=== PATIENT | male | born 1945 | race Caucasian/White ===

== ENCOUNTER 2020-10-22 13:18 | Observation (INO) | payer MEDICARE ==
[~2020-10-22] VITALS: Ht 177.8 cm; Wt 109.5 kg
[2020-10-22] MEDS ORDERED: ALBU2.5V4 NEB (13:54)
[2020-10-22] MEDS ORDERED: CLON0.5T4 PO (13:54)
[2020-10-22] MEDS ORDERED: WARF-48 PO (13:54)
[2020-10-22] MEDS ORDERED: CARV25TA PO (13:54)
[2020-10-22] MEDS ORDERED: DIGO250T3 PO (13:54)
[2020-10-22] MEDS ORDERED: PANT40TA52 PO (13:54)
[2020-10-22] MEDS ORDERED: CITA20TA9 PO (13:54)
[2020-10-22] MEDS ORDERED: METF750T45 PO (13:54)
[2020-10-22] MEDS ORDERED: FURO40TA4 PO (13:54)
[2020-10-22] MEDS ORDERED: LOSA50TA63 PO (13:54)
[2020-10-22] MEDS ORDERED: PRAV20TA3 PO (13:54)
[2020-10-22] MEDS ORDERED: UMEC62.5 INH (13:54)
[2020-10-22] MEDS ORDERED: POTA20TA15 PO (13:54)
[2020-10-22] MEDS ORDERED: RT-ALBUTEROL INHALER HFA (VENTOLIN HFA) 18 GM IH ONE (14:04)
--- NOTE | 2020-10-22 14:06 | NUR ---
PT OXYGEN WAS OFF ET PULSE OX 93% ROOM AIR. PT STATES HE IS BETTER AND DOES NOT NEED IT PUT BACK ON.
[2020-10-22 14:10] LABS: ALBUMIN 4.6 GM/DL (3.2-4.5); CHLORIDE 100 MMOL/L (98-107); POTASSIUM 4.2 MMOL/L (3.6-5.0); SODIUM 139 MMOL/L (135-145)
[2020-10-22 14:11] LABS: BASOPHILS # (AUTO) 0.1 10^3/uL (0.0-0.1); BASOPHILS % (AUTO) 1 % (0-10); CALCIUM 9.9 MG/DL (8.5-10.1); EOSINOPHILS # (AUTO) 0.6 10^3/uL (0.0-0.3); EOSINOPHILS % (AUTO) 6 % (0-10); HEMATOCRIT 48 % (40-54); HEMOGLOBIN 16.2 g/dL (13.3-17.7); LYMPHOCYTES % (AUTO) 20 % (12-44); MEAN CORPUSCULAR HEMOGLOBIN 32 pg (25-34); MEAN CORPUSCULAR HGB CONC 34 g/dL (32-36); MEAN CORPUSCULAR VOLUME 93 fL (80-99); MEAN PLATELET VOLUME 10.3 fL (9.0-12.2); MONOCYTES % (AUTO) 10 % (0-12); NEUTROPHILS # (AUTO) 6.4 10^3/uL (1.8-7.8); NEUTROPHILS % (AUTO) 63 % (42-75); PLATELET COUNT 260 10^3/uL (130-400); WHITE BLOOD COUNT 10.1 10^3/uL (4.3-11.0)
[2020-10-22 14:12] LABS: GLUCOSE 105 MG/DL (70-105); TOTAL PROTEIN 7.6 GM/DL (6.4-8.2)
[2020-10-22 14:13] LABS: CARBON DIOXIDE 25 MMOL/L (21-32)
[2020-10-22 14:14] LABS: BILIRUBIN,TOTAL 0.5 MG/DL (0.1-1.0)
[2020-10-22] MEDS ORDERED: methylPREDNISolone 125 MG (Solu-MEDROL) VIAL IVP ONE (14:15)
[2020-10-22 14:16] LABS: ALKALINE PHOSPHATASE 52 U/L (40-136); CREATININE SERUM 1.26 MG/DL (0.60-1.30); GFR ESTIMATED 56
[2020-10-22 14:17] LABS: BUN/CREATININE RATIO 15
[2020-10-22 14:19] LABS: ALANINE AMINOTRANSFERASE 30 U/L (0-55)
[2020-10-22] MEDS: RT-ALBUTEROL INHALER HFA (VENTOLIN HFA) 18 GM IH SCH ×3 (14:19→19:47)
--- NOTE | 2020-10-22 14:20 | ED Respiratory ---
General Chief Complaint: Respiratory Problems Stated Complaint: COUGH,SOB Nursing Triage Note: ARRIVED VIA AMB TO ROOM 10 IN RESP DISTRESS. STATES HE HAS VOICE BOX PROBLEMS AND HAS THIS FROM TIME TO TIME. STATES IT STARTED ABOUT A WEEK AGO. HAD A NEG COVID TEST LAST FRIDAY. ALSO COMPLAINS OF A COUGH. Source: patient Exam Limitations: no limitations (LEVON FREEDMAN MD) History of Present Illness Date Seen by Provider: Oct 22, 2020 Time Seen by Provider: 13:55 Initial Comments This 74-year-old gentleman presents to the emergency room with cough and shortness of breath. He arrives by private vehicle. Nursing staff reports he was exhausted and in significant distress after walking to the room. He has a pulse oximeter at home and reports oxygen levels as low as 86. He denies history of COPD and family reports he had been tested for COPD with negative results. However, he has diffuse wheezing with poor air movement indicative of COPD. He denies recent fever. He denies any COVID-19 exposures. She reports having episodes similar to this about once per winter. He denies chest pain. He initially reported he had not been using his nebulizer machine since he was admitted last year. He later clarified he had not used it until the last few days when he started using it about every 3 hours. He continues to have shortness of breath despite that. He reports prior problems with vocal cord dysfunction, but that does not appear to be his problem today. (LEVON FREEDMAN MD) Allergies and Home Medications Allergies Coded Allergies: No Known Drug Allergies (Unverified , 10/22/20) Home Medications Albuterol Sulfate 2.5 Mg/3 Ml Vial.neb, 3 ML NEB Q4 -6H PRN for SHORTNESS OF BREATH, (Reported) Calcium Carbonate 600 Mg Tablet, 600 MG PO DAILY, (Reported) Carvedilol 25 Mg Tablet, 25 MG PO BID, (Reported) Citalopram Hydrobromide 20 Mg Tablet, 10 MG PO BID, (Reported) TAKES OF A 20MG TAB Clonazepam 0.5 Mg Tablet, 0.25 MG PO 1800, (Reported) Clonazepam 0.5 Mg Tablet, 0.5 MG PO HS, (Reported) Digoxin 250 Mcg Tablet, 250 MCG PO HS, (Reported) Furosemide 40 Mg Tablet, 40 MG PO DAILY, (Reported) Gabapentin 300 Mg Capsule, 300 MG PO TID, (Reported) Losartan Potassium 50 Mg Tablet, 50 MG PO DAILY, (Reported) Metformin HCl 750 Mg Tab.er.24h, 750 MG PO BID, (Reported) [place]-3/Dha/Epa/Fish Oil 1 Each Capsule, 1 EACH PO DAILY, (Reported) Pantoprazole Sodium 40 Mg Tablet.dr, 40 MG PO DAILY, (Reported) Potassium Chloride 20 Meq Tab.er.prt, 20 MEQ PO DAILY, (Reported) Pravastatin Sodium 20 Mg Tablet, 20 MG PO HS, (Reported) Umeclidinium [place] 62.5 Mcg Blst.w.dev, 1 PUFF INH DAILY, (Reported) Vitamin B Complex 1 Each Capsule, 1 EACH PO DAILY, (Reported) Warfarin Sodium 5 Mg Tablet, 7.5 MG PO SUN,FRI,FRI, (Reported) TAKES 1 & (5MG) TABS ON SUN,FRI &FRI TAKES 1 TAB (5MG) ON TUES,THUS & FRI TAKES (5MG) TAB ON SAT Warfarin Sodium 5 Mg Tablet, 5 MG PO TU,FRI,FRI, (Reported) TAKES 1 & (5MG) TABS ON SUN,MON &WED TAKES 1 TAB (5MG) ON TUES,THUS & FRI TAKES (5MG) TAB ON SAT Warfarin Sodium 5 Mg Tablet, 2.5 MG PO SAT, (Reported) TAKES 1 & (5MG) TABS ON SUN,FRI &WED TAKES 1 TAB (5MG) ON TUES,THUS & FRI TAKES (5MG) TAB ON SAT Patient Home Medication List Home Medication List Reviewed: Yes (LEVON FREEDMAN MD) Review of Systems Review of Systems Constitutional: no symptoms reported EENTM: no symptoms reported Respiratory: see HPI Cardiovascular: no symptoms reported Gastrointestinal: no symptoms reported Genitourinary: no symptoms reported Musculoskeletal: no symptoms reported Skin: no symptoms reported Psychiatric/Neurological: No Symptoms Reported Hematologic/Lymphatic: No Symptoms Reported Immunological/Allergic: no symptoms reported (LEVON FREEDMAN MD) Past Pqfqbcx-Hzfqmp-Sgkiqc Hx Past Med/Social Hx: Reviewed Nursing Past Med/Soc Hx (LEVON FREEDMAN MD) Patient Social History Alcohol Use: Past History Recreational Drug Use: No Smoking Status: Former Smoker Recent Foreign Travel: No Contact w/Someone Who Travel: No Recent Infectious Disease Expo: No (LEVON FREEDMAN MD) Past Medical History Surgeries: Yes (CYSTS REMOVED) Appendectomy, Tonsillectomy Cardiac: Yes (CHF) Hypertension Neurological: No Genitourinary: No Gastrointestinal: No Musculoskeletal: No Endocrine: Yes Diabetes, Non-Insulin dep Cancer: No Psychosocial: No Integumentary: No (LEVON FREEDMAN MD) Physical Exam Vital Signs - First Documented 10/22/20 13:35 Temp 36.3 Pulse 74 Resp 24 B/P (MAP) 199/104 (135) Pulse Ox 93 O2 Delivery Room Air (MAGGIE COLON MED STUDENT) Capillary Refill : Less Than 3 Seconds (LEVON FREEDMAN MD) Height: '" Weight: lbs. oz. 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, no motor/sensory deficits, alert, normal mood/affect, oriented x 3 Skin: normal color, warm/dry (LEVON FREEDMAN MD) Focused Exam Lactate Level 10/22/20 13:35: Lactic Acid Level 1.32 (MAGGIE COLON MED STUDENT) Lactic Acid Level Laboratory Tests Test 10/22/20 13:35 Lactic Acid Level 1.32 MMOL/L (0.50-2.00) (MAGGIE COLNO MED STUDENT) Progress/Results/Core Measures Suspected Sepsis Recent Fever Within 48 Hours: No Infection Criteria Present: Suspected New Infection New/Unexplained Altered Menta: No Sepsis Screen: No Definite Risk SIRS Temperature: Pulse: 74 Respiratory Rate: 24 Laboratory Tests 10/22/20 13:35: White Blood Count 10.1 Blood Pressure 199 /104 Mean: 135 10/22/20 13:35: Lactic Acid Level 1.32 Laboratory Tests 10/22/20 13:35: Creatinine 1.26, INR Comment 1.7H, Platelet Count 260, Total Bilirubin 0.5 (LEVON FREEDMAN MD) Results/Orders Lab Results Laboratory Tests Test 10/22/20 13:35 10/22/20 14:45 Range/Units White Blood Count 10.1 4.3-11.0 10^3/uL Red Blood Count 5.11 4.30-5.52 10^6/uL Hemoglobin 16.2 13.3-17.7 g/dL Hematocrit 48 40-54 % Mean Corpuscular Volume 93 80-99 fL Mean Corpuscular Hemoglobin 32 25-34 pg Mean Corpuscular Hemoglobin Concent 34 32-36 g/dL Red Cell Distribution Width 12.8 10.0-14.5 % Platelet Count 260 130-400 10^3/uL Mean Platelet Volume 10.3 9.0-12.2 fL Immature Granulocyte % (Auto) 0 % Neutrophils (%) (Auto) 63 42-75 % Lymphocytes (%) (Auto) 20 12-44 % Monocytes (%) (Auto) 10 0-12 % Eosinophils (%) (Auto) 6 0-10 % Basophils (%) (Auto) 1 0-10 % Neutrophils # (Auto) 6.4 1.8-7.8 10^3/uL Lymphocytes # (Auto) 2.0 1.0-4.0 10^3/uL Monocytes # (Auto) 1.0 0.0-1.0 10^3/uL Eosinophils # (Auto) 0.6 H 0.0-0.3 10^3/uL Basophils # (Auto) 0.1 0.0-0.1 10^3/uL Immature Granulocyte # (Auto) 0.0 0.0-0.1 10^3/uL Prothrombin Time 20.3 H 12.2-14.7 SEC INR Comment 1.7 H 0.8-1.4 Activated Partial Thromboplast Time 35 24-35 SEC D-Dimer 0.30 0.00-0.49 UG/ML Sodium Level 139 135-145 MMOL/L Potassium Level 4.2 3.6-5.0 MMOL/L Chloride Level 100 98-107 MMOL/L Carbon Dioxide Level 25 21-32 MMOL/L Anion Gap 14 5-14 MMOL/L Blood Urea Nitrogen 19 H 7-18 MG/DL Creatinine 1.26 0.60-1.30 MG/DL Estimat Glomerular Filtration Rate 56 BUN/Creatinine Ratio 15 Glucose Level 105 70-105 MG/DL Lactic Acid Level 1.32 0.50-2.00 MMOL/L Calcium Level 9.9 8.5-10.1 MG/DL Corrected Calcium 8.5-10.1 MG/DL Total Bilirubin 0.5 0.1-1.0 MG/DL Aspartate Amino Transf (AST/SGOT) 21 5-34 U/L Alanine Aminotransferase (ALT/SGPT) 30 0-55 U/L Alkaline Phosphatase 52 40-136 U/L Lactate Dehydrogenase 196 125-220 U/L C-Reactive Protein High Sensitivity 0.47 0.00-0.50 MG/DL Total Protein 7.6 6.4-8.2 GM/DL Albumin 4.6 H 3.2-4.5 GM/DL Procalcitonin 0.03 <0.10 NG/ML Digoxin Level 0.56 L 0.80-2.00 NG/ML Coronavirus 2019 (ZOE) Negative Negative (MAGGIE COLON STUDENT) Micro Results Microbiology 10/22/20 Influenza Types A,B Antigen (ELISABETH) - Final, Complete (MAGGIE COLON STUDENT) Medications Given in ED Current Medications Medications Dose Ordered Sig/Divya Route Start Time Stop Time Status Last Admin Dose Admin Methylprednisolone Sodium Succinate 125 mg ONCE ONCE IVP 10/22/20 14:15 10/22/20 14:16 DC 10/22/20 14:50 125 MG (MAGGIE COLON STUDENT) Vital Signs/I&O 10/22/20 13:35 Temp 36.3 Pulse 74 Resp 24 B/P (MAP) 199/104 (135) Pulse Ox 93 O2 Delivery Room Air (MAGGIE COLON MED STUDENT) Vital Signs/I&O Capillary Refill : Less Than 3 Seconds (LEVON FREEDMAN MD) Blood Pressure Mean: 135 Progress Note : Progress Note Patient was taken out of PUI status after review of labs and negative COVID rapid swab. He was started on Rocephin and Solu-medrol for treatment of COPD. He denied history of COPD but he is on medications for COPD and has features of COPD. His oxygenation is marginal. We discussed risks and benefits of admission at length. He elected admission. (LEVON FREEDMAN MD) Progress Note : Time: 15:30 Progress Note - His flu and rapid Covid swabs came back negative. Imaging studies were clear. He was given salmeterol and 4 puffs of inhaler in the ER, which helped a little. He reports having a nebulizer machine at home but hasn't been using it since last spring/winter. He has more nebulizer solution (a couple of boxes) at home but doesn't have oxygen at home. Oxygen saturation has ranged from 89-94% in the ER. The patient walked about 25 yards in the hallway and still reported shortness of breath with his pulse O2 saturation showing 90-91% immediately after. Wheezes were heard in both lungs. He already had an inhaler with albuterol from home but the spray was defective. He was given the option to be admitted to the hospital for observation or released home, he preferred being admitted. (MAGGIE COLON MED STUDENT) Diagnostic Imaging Diagonstic Imaging: Xray Plain Films/CT/US/NM/MRI: chest Comments NAME: AMY SAMUELS [facility] REC#: [id number] PT STATUS: REG ER : 1945 PHYSICIAN: LEVON FREEDMAN MD ADMIT DATE: 10/22/20/ER Signed Date of Exam:10/22/20 CHEST 1 VIEW, AP/PA ONLY INDICATION: Sepsis. EXAMINATION: Single view of the chest was obtained. FINDINGS: AP chest shows the heart size to be upper normal. The vascularity is normal. The lungs are clear. There is no effusion or pneumothorax. There is no bony abnormality. IMPRESSION: No acute abnormality is seen. Dictated by: Dictated on workstation # [id number] Dict: 10/22/20 1435 Trans: 10/22/20 1508 [facility] [id number] Interpreted by: IWONA BLACKWELL MD Electronically signed by: IWONA BLACKWELL MD 10/22/20 1508 Reviewed: Reviewed by Me (LEVON FREEDMAN MD) Departure Communication (Admissions) Time/Spoke to Admitting Phy: 15:39 Dr. Rodríguez (LEVON FREEDMAN MD) Impression Primary Impression: COPD exacerbation Additional Impression: Hypoxia Disposition: 43 DISC/XFER TO A [facility] HOSPITAL Condition: Improved Admissions Decision to Admit Reason: Admit from ER (General) Decision to Admit/Date: Oct 22, 2020 Time/Decision to Admit Time: 15:35 (LEVON FREEDMAN MD) Departure-Patient Inst. Referrals: RIVAS SANDERS DO (PCP/Family) Primary Care Physician LEVON FREEDMAN MD Oct 22, 2020 14:20 MAGGIE COLON MED STUDENT Oct 22, 2020 15:49
[2020-10-22 14:22] LABS: FIBRIN DEGRADATION PRODUCTS 0.3 UG/ML (0.00-0.49); INR 1.7 (0.8-1.4); PROTHROMBIN TIME PATIENT 20.3 SEC (12.2-14.7)
--- NOTE | 2020-10-22 14:37 | Diagnostic Imaging Report ---
INDICATION: Sepsis. EXAMINATION: Single view of the chest was obtained. FINDINGS: AP chest shows the heart size to be upper normal. The vascularity is normal. The lungs are clear. There is no effusion or pneumothorax. There is no bony abnormality. IMPRESSION: No acute abnormality is seen. Dictated by: Dictated on workstation # [id number]
[2020-10-22 15:08] LABS: BILIRUBIN,URINE NEGATIVE (NEGATIVE); CLARITY,URINE CLEAR; COLOR,URINE YELLOW; GLUCOSE, URINE (UA) NEGATIVE (NEGATIVE); KETONES,URINE NEGATIVE (NEGATIVE); LEUKOCYTE ESTERASE ,URINE NEGATIVE (NEGATIVE); NITRITE,URINE NEGATIVE (NEGATIVE); PROTEIN,URINE NEGATIVE (NEGATIVE)
--- NOTE | 2020-10-22 15:30 | NUR ---
IN WITH THE PT AT THIS TIME ET WALKING HIM WITHOUT OXYGEN.
[2020-10-22 15:54] LABS: BACTERIA,URINE TRACE /HPF
[2020-10-22] MEDS ORDERED: cefTRIAXone FOR IV USE 1,000 MG in WATER (STERILE) FOR INJECTION 10 ML IV ONE (16:00)
--- NOTE | 2020-10-22 16:06 | NUR ---
SATURATION DIVER CONTACTED FOR A BED.
--- NOTE | 2020-10-22 16:46 | NUR ---
DR MONTERO PLACED OXYGEN BACK ON PT AFTER WALKING HIM BECUASE HIS PULSE OX DROPPED TO 90% ROOM AIR.
[2020-10-22 17:00] VITALS: BP 153/89
[2020-10-22] MEDS ORDERED: NS IV 1000 ML 1,000 ML IV SCH (17:45)
[2020-10-22] MEDS: NovoLOG/HumaLOG RANGE A SC SCH ×2 (18:10→21:40)
[2020-10-22] MEDS: methylPREDNISolone 40 MG/ML (Solu-MEDROL) VIAL IV SCH (18:21)
[2020-10-22] MEDS: warFARin 7.5 MG (COUMADIN) TAB PO SCH (18:22)
[2020-10-22] MEDS: metFORMIN XR 500 MG (GLUCOPHAGE XR) TAB PO SCH (18:22)
[2020-10-22] MEDS: CARVEDILOL 12.5 MG (COREG) TABLET PO SCH (18:22)
--- NOTE | 2020-10-22 19:17 | NUR ---
AMY SAMUELS admitted to room 419-1, with an admitting diagnosis of SOA, on 10/22/20 from DC via , accompanied by STAFF.AMY SAMUELS introduced to surroundings, call light, bed controls, phone, TV, temperature control, lights, meal times, smoking policy, visitor policy, side rail policy, bathrooms and showers. Patient Rights given to patient in the handbook. AMY SAMUELS verbalizes understanding that [facility] is not responsible for the loss or damage to any personal effects or valuables that are kept in the patients posession during their hospitalization. Patient and/or family were informed about the Rapid Response Team and its purpose.
[2020-10-22 20:00] VITALS: BP 154/98
[2020-10-22] MEDS: GABAPENTIN 300 MG (NEURONTIN) CAP PO SCH (21:39)
[2020-10-22] MEDS: PRAVASTATIN 20 MG (PRAVACHOL) TAB NON-FORMULARY PO SCH (21:42)
[2020-10-22] MEDS: PATIENT MAY USE OWN MED,SINGLE MED PO SCH ×2 (22:30)
[2020-10-23] VITALS (7 sets, daily range): BP systolic 146–166; BP diastolic 73–87
[2020-10-23] MEDS: methylPREDNISolone 40 MG/ML (Solu-MEDROL) VIAL IV SCH ×5 (00:13→22:37)
[2020-10-23] MEDS: RT-ALBUTEROL INHALER HFA (VENTOLIN HFA) 18 GM IH SCH ×7 (00:31→21:19)
[2020-10-23 06:05] LABS: INR 1.6 (0.8-1.4)
[2020-10-23 06:11] LABS: CHLORIDE 103 MMOL/L (98-107); POTASSIUM 4.3 MMOL/L (3.6-5.0); SODIUM 138 MMOL/L (135-145)
[2020-10-23 06:13] LABS: CALCIUM 9.1 MG/DL (8.5-10.1); GLUCOSE 174 MG/DL (70-105)
[2020-10-23 06:14] LABS: CARBON DIOXIDE 22 MMOL/L (21-32)
[2020-10-23 06:17] LABS: CREATININE SERUM 1.04 MG/DL (0.60-1.30); GFR ESTIMATED > 60
[2020-10-23 06:18] LABS: BUN/CREATININE RATIO 21
[2020-10-23] MEDS: metFORMIN XR 500 MG (GLUCOPHAGE XR) TAB PO SCH ×2 (06:52→17:19)
[2020-10-23] MEDS: NovoLOG/HumaLOG RANGE A SC SCH ×4 (06:52→20:57)
[2020-10-23] MEDS: FUROSEMIDE 40 MG (LASIX) TAB PO SCH (06:53)
[2020-10-23] MEDS: KCL 20 MEQ TAB (K-DUR) PO SCH (06:54)
[2020-10-23] MEDS ORDERED: UMECLIDINIUM BROMIDE (INCRUSE ELLIPTA) 7'S IH SCH (08:00)
[2020-10-23] MEDS: GABAPENTIN 300 MG (NEURONTIN) CAP PO SCH ×3 (08:40→19:59)
[2020-10-23] MEDS: CARVEDILOL 12.5 MG (COREG) TABLET PO SCH ×2 (08:44→17:20)
[2020-10-23] MEDS ORDERED: DIGOXIN 0.25 MG (LANOXIN) TAB PO SCH (09:00)
[2020-10-23] MEDS ORDERED: LOSARTAN 50 MG (COZAAR) TAB PO SCH (09:00)
--- NOTE | 2020-10-23 09:13 | NUR ---
continuous pulse oximetry not working. Chord to it is broken and there is no replacement at this time. Will continue to spot check oxygen saturation.
[2020-10-23] MEDS ORDERED: FISH1CAP15 PO (09:26)
[2020-10-23] MEDS ORDERED: CLON0.5T4 PO (09:26)
[2020-10-23] MEDS ORDERED: WARF-48 PO ×2 (09:26)
[2020-10-23] MEDS ORDERED: GABA300C PO (09:26)
[2020-10-23] MEDS ORDERED: VITA1CAP19 PO (09:26)
[2020-10-23] MEDS ORDERED: CLC600T PO (09:26)
[2020-10-23] MEDS ORDERED: OMEG-33 PO (09:26)
--- NOTE | 2020-10-23 09:35 | NUR ---
SPOKE WITH THE PT (HE HAS HIS BOTTLES IN THE ROOM)AND WENT THRU THE EXT MED HISTORY TO COMPLETE THE MED REC CITALOPRAM 20MG- DIRECTIONS SHOW 1 TAB DAILY- HOWEVER PT SAYS HE TAKES TAB BID KLONOPIN- DIRECTIONS SHOW TAB DAILY AND 1 HS- PT LET ME KNOW HE TAKES TAB 1800 AND 1 TAB HS WARFARIN 5MG- DIRECTIONS ARE 1 & TAB DAILY BUT ACCORDING TO THE PT HE IS CURRENTLY TAKING FOLLOWS: SUN- 7.5MG (1 & 5MG) MON-7.5MG (1 & 5MG) TUES- 5MG WED-7.5MG (1 & 5MG) THURS-5MG FRI-5MG SAT-2.5MG ( OF A 5MG) OTC MEDS: SUPER B COMPLEX FISH OIL CALCIUM
--- NOTE | 2020-10-23 10:54 | History & Physical-Hospitalist ---
JON CAUSEY MED STUDENT 10/23/20 1054: History of Present Illness HPI/Chief Complaint Jose is a 74yo male presenting with COPD exacerbation/dyspnea over the past week. His SOB worsened until yesterday when he presented to the ED. He states that this has happened consistently over the past 3 years during winter. Complains of a productive cough. Denies chest pain, palpitations, abd pain. States that he experienced some nausea after receiving his steroid dose this morning. Source: patient Exam Limitations: no limitations Date Seen 10/23/20 Time Seen by a Provider: 09:30 Attending Physician Josephine Rodríguez MD PCP Deion Feliciano DO Referring Physician Date of Admission Oct 22, 2020 at 15:56 Home Medications & Allergies Home Medications Reviewed patient Home Medication Reconciliation performed by pharmacy medication reconciliations astro technician and/or nursing. Patients Allergies have been reviewed. Allergies Allergies Coded Allergies No Known Drug Allergies (Unverified10/22/20) Past Tbhdrsy-Lyzsyq-Lvbrfn Hx Past Med/Social Hx: Reviewed Nursing Past Med/Soc Hx Patient Social History Alcohol Use: Past History Recreational Drug Use: No Smoking Status: Former Smoker Recent Foreign Travel: No Contact w/other who traveled: No Recent Infectious Disease Expo: No Immunizations Up To Date Date of Pneumonia Vaccine: Oct 22, 1996 Date of Influenza Vaccine: Aug 14, 2020 Past Medical History Surgeries: Appendectomy, Tonsillectomy Cardiac: Hypertension Endocrine: Diabetes, Non-Insulin dep Family History Colon cancer 19 FATHER Review of Systems Constitutional: No chills, No dizziness, No fever EENTM: hearing loss; No vision loss Respiratory: cough, dyspnea on exertion, phlegm, short of breath Cardiovascular: No chest pain, No edema, No palpitations Gastrointestinal: No abdominal pain, No constipation, No diarrhea Genitourinary: No dysuria, No frequency, No hematuria Musculoskeletal: No muscle pain, No muscle stiffness, No muscle cramps Skin: No change in color, No lesions, No pruritus, No rash Psychiatric/Neurological: Denies Headache; Numbness, Tingling Physical Exam Physical Exam Vital Signs Vital Signs - First Documented 10/22/20 10/22/20 13:35 16:47 Temp 36.3 Pulse 74 Resp 24 B/P (MAP) 199/104 (135) Pulse Ox 93 O2 Delivery Room Air O2 Flow Rate 3.00 Capillary Refill : Less Than 3 Seconds Height, Weight, BMI Height: '" Weight: lbs. oz. kg; 34.63 BMI Method: General Appearance: No Apparent Distress, WD/WN, Chronically ill HEENT: PERRL/EOMI, Normal ENT Inspection Neck: Full Range of Motion, Normal Inspection, Non Tender, Supple Respiratory: Chest Non Tender, Lungs Clear, Normal Breath Sounds, No Accessory Muscle Use, No Respiratory Distress Cardiovascular: Regular Rate, Rhythm, No Edema, No Gallop, No JVD, No Murmur, Normal Peripheral Pulses Gastrointestinal: Normal Bowel Sounds, Non Tender, Soft Rectal: Deferred Back: Normal Inspection, No CVA Tenderness, No Vertebral Tenderness Extremity: Normal Capillary Refill, Normal Inspection, Normal Range of Motion, Non Tender Neurologic/Psychiatric: Alert, Oriented x3, Normal Mood/Affect, Sensory Deficit (numbness/tingling to extremities) Skin: Normal Color, Warm/Dry Lymphatic: No Adenopathy Results Results/Procedures Labs Laboratory Tests 10/22/20 13:35 10/23/20 05:40 Patient resulted labs reviewed. Assessment/Plan Admission Diagnosis COPD exacerbation Assessment and Plan COPD exacerbation/hypoxia T2DM Afib CHF HTN CXR showed no s/s pneumonia or infiltrate Continue steroids Monitor VS/labs Wean from O2; pt uses CPAP at night to sleep but does not use O2 during the day Clinical Quality Measures DVT/VTE Risk/Contraindication: Risk Factor Score Per Nursin RFS Level Per Nursing on Admit: 4+=Very High REDDY ZAPATA MD 10/23/20 1910: Past Zqyfaiy-Vchior-Ehdsko Hx Family History Colon cancer 19 FATHER Assessment/Plan Admission Diagnosis Admission Status: Observation Assessment and Plan Admitted with COPD exacerbation. Will continue on steroids. MAT protocol. COVID negative. Follows with pulm as an outpatient at OSH. Will order home oxygen study. Hopefully home tomorrow if continues to improve. Continue home Coumadin. Check INR in AM. Supervisory-Addendum Brief Verification & Attestation Participated in pt care: history, MDM, physical Personally performed: exam, history, MDM, supervision of care Care discussed with: Medical Student Procedures: n/a Results interpretation: Verified all documentation Verification and Attestation of Medical Student E/M Service A medical student performed and documented this service in my presence. I reviewed and verified all information documented by the medical student and made modifications to such information, when appropriate. I personally performed the physical exam and medical decision making. Reddy Zapata, Oct 23, 2020,19:03 JON CAUSEY MED STUDENT Oct 23, 2020 10:54 REDDY ZAPATA MD Oct 23, 2020 19:10
--- NOTE | 2020-10-23 15:05 | NUR ---
RD ASSESSMENT PMHx: HTN; DM; COPD; PT INTERACTION: Pt was awake and pleasant during nutrition assessment. Pt states current appetite is poor, and has been this way for the last 2days. Note avg PO intake 100% x3meal, per chart review. Pt states following a low-CHO, low-Na diet at home, and has no issues with chewing/swallowing food. Pt states no recent issues with nausea, vomiting, constipation, or diarrhea, and that his last BM was 10/23. Note pt not currently on bowel regimen, per chart review. Pt states no recent wt changes. Note unable to determine recent wt hx, per chart review. Pt states current DM management is good, "except my numbers are going up with this steroid medicine I'm on." Note unable to determine recent HbA1c, per chart review. Est. kcal needs: [id number] kcal | 15-18 kcal/kg Est. Pro needs: 88-110 g Pro | 0.8-1.0 g Pro/kg PES STATEMENT: Inadequate oral intake (NI-2.1) related to loss of appetite, as evidenced by pt interview. INTERVENTION: Continue with current diet order of CHO 60g/m 3snck diet. Encouraged pt to eat when able. Offered diet education on DM management, but pt declined at this time. May attempt to offer again prior to discharge. Will continue to follow and reassess as pt needs, intake, and status change. Sara BUSTILLO, MS RD [phone] cell
[2020-10-23] MEDS ORDERED: cefTRIAXone 1,000 MG/SWFI 10 ML IV PUSH IV SCH ×2 (16:00)
[2020-10-23] MEDS: warFARin 7.5 MG (COUMADIN) TAB PO SCH (17:19)
[2020-10-23] MEDS: PATIENT MAY USE OWN MED,SINGLE MED PO SCH ×2 (20:04→20:05)
[2020-10-23] MEDS: PRAVASTATIN 20 MG (PRAVACHOL) TAB NON-FORMULARY PO SCH (20:05)
[2020-10-23] MEDS ORDERED: clonazePAM 0.5 MG (KlonoPIN) TAB PO SCH (21:00)
[2020-10-23] MEDS ORDERED: guaiFENesin/DM (ROBITUSSIN DM) 10 ML UDC PO PRN (22:00)
[2020-10-23] MEDS ORDERED: ACETAMINOPHEN 500 MG TAB (TYLENOL) PO PRN (22:00)
[2020-10-24] MEDS: RT-ALBUTEROL INHALER HFA (VENTOLIN HFA) 18 GM IH SCH ×2 (02:06→10:17)
[2020-10-24 03:53] VITALS: BP 169/78
[2020-10-24 06:04] LABS: HEMOGLOBIN 14.2 g/dL (13.3-17.7); MEAN PLATELET VOLUME 10.3 fL (9.0-12.2)
[2020-10-24] MEDS: metFORMIN XR 500 MG (GLUCOPHAGE XR) TAB PO SCH (06:09)
[2020-10-24] MEDS: methylPREDNISolone 40 MG/ML (Solu-MEDROL) VIAL IV SCH ×2 (06:09→12:13)
[2020-10-24] MEDS: NovoLOG/HumaLOG RANGE A SC SCH ×2 (06:09→10:53)
[2020-10-24] MEDS: FUROSEMIDE 40 MG (LASIX) TAB PO SCH (06:09)
[2020-10-24] MEDS: KCL 20 MEQ TAB (K-DUR) PO SCH (06:09)
[2020-10-24 06:28] LABS: CHLORIDE 103 MMOL/L (98-107); POTASSIUM 4.2 MMOL/L (3.6-5.0); SODIUM 137 MMOL/L (135-145)
[2020-10-24 06:29] LABS: CALCIUM 8.9 MG/DL (8.5-10.1); GLUCOSE 158 MG/DL (70-105); PROTHROMBIN TIME PATIENT 23.3 SEC (12.2-14.7)
[2020-10-24 06:31] LABS: CARBON DIOXIDE 22 MMOL/L (21-32)
[2020-10-24 06:33] LABS: CREATININE SERUM 1.05 MG/DL (0.60-1.30); GFR ESTIMATED > 60
[2020-10-24 06:34] LABS: BUN/CREATININE RATIO 26
--- NOTE | 2020-10-24 06:47 | Progress Note - Hospitalist ---
JON CAUSEY MED STUDENT 10/24/20 0647: Subjective HPI/CC On Admission Date Seen by Provider: Oct 24, 2020 Time Seen by Provider: 06:20 Jose is a 74yo male presenting with COPD exacerbation/dyspnea over the past week. His SOB worsened until yesterday when he presented to the ED. He states that this has happened consistently over the past 3 years during winter. Complains of a productive cough. Denies chest pain, palpitations, abd pain. States that he experienced some nausea after receiving his steroid dose this morning. Subjective/Events-last exam Pt seen and examined. He was found ambulating to the restroom in NAD. He says that his breathing has continued to improve but still has a productive cough with mostly clear mucus. Denies chest pain, abd pain, N/V. Review of Systems General: No Chills HEENT: No Head Aches Pulmonary: Dyspnea, Cough Cardiovascular: No: Chest Pain, Palpitations Gastrointestinal: No: Nausea, Vomiting, Abdominal Pain Genitourinary: No Dysuria Neurological: Numbness (BUE/BLE); No: Weakness Focused Exam Lactate Level 10/22/20 13:35: Lactic Acid Level 1.32 Objective Exam Vital Signs Vital Signs Date Time Temp Pulse Resp B/P (MAP) Pulse Ox O2 Delivery O2 Flow Rate FiO2 10/24/20 03:53 36.5 68 21 169/78 (108) 96 NIV CPAP 10/24/20 02:06 2.00 Capillary Refill : Less Than 3 Seconds General Appearance: No Apparent Distress, WD/WN, Obese HEENT: PERRL/EOMI, Normal ENT Inspection Neck: Full Range of Motion, Normal Inspection, Non Tender, Supple Respiratory: Chest Non Tender, Lungs Clear, No Accessory Muscle Use, No Respiratory Distress, Decreased Breath Sounds Cardiovascular: Regular Rate, Rhythm, No Edema, No Gallop, No JVD, No Murmur, Normal Peripheral Pulses Gastrointestinal: Normal Bowel Sounds, Non Tender, Soft Rectal: Deferred Back: Normal Inspection, No CVA Tenderness, No Vertebral Tenderness Extremity: Normal Capillary Refill, Normal Inspection, Normal Range of Motion, Non Tender, No Pedal Edema Neurologic/Psychiatric: Alert, Oriented x3, Normal Mood/Affect, Sensory Deficit (numbness to BUE/BLE) Skin: Normal Color, Warm/Dry Lymphatic: No Adenopathy Results/Procedures Lab Laboratory Tests 10/24/20 05:45 Patient resulted labs reviewed. Assessment/Plan Assessment and Plan Assess & Plan/Chief Complaint COPD exacerbation/hypoxia T2DM PAF CHF HTN Leukocytosis - WBC 19, likely due to steroid therapy 10/22/20 CXR showed no s/s pneumonia or infiltrate, blood/urine cultures negative Continue steroids; transition to PO Monitor VS/labs Wean from O2; pt uses CPAP at night to sleep but does not use O2 during the day Clinical Quality Measures DVT/VTE Risk/Contraindication: Risk Factor Score Per Nursin RFS Level Per Nursing on Admit: 4+=Very High REDDY EWDARDS MD 10/25/20 1115: JON CAUSEY MED STUDENT Oct 24, 2020 06:47 REDDY EDWARDS MD Oct 25, 2020 11:15
[2020-10-24 08:53] VITALS: BP 185/73
[2020-10-24] MEDS ORDERED: PATIENT MAY USE OWN MEDS, ALL MC SCH (09:00)
[2020-10-24] MEDS ORDERED: CARVEDILOL 25 MG TABLET PO SCH (09:04)
[2020-10-24] MEDS ORDERED: FUROSEMIDE 40 MG (LASIX) TAB PO SCH (09:09)
[2020-10-24] MEDS ORDERED: LOSARTAN 50 MG (COZAAR) TAB PO SCH (09:12)
[2020-10-24] MEDS ORDERED: KCL 20 MEQ TAB (K-DUR) PO SCH (09:13)
[2020-10-24] MEDS ORDERED: METFORMIN 750 MG PO SCH (09:15)
--- NOTE | 2020-10-24 09:48 | NUR ---
CM/SS visited with patient for discharge planning. Plan: The patient will likely discharge today to home, self care. An oxygen study will be done to determine home oxygen need. Home: The patient lives at home with his . He states that at baseline he is independent and does not use any assistive devices. 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 The patient does state he has neuropathy in his legs and needs to sit down if he's been standing for 6 hours or longer. Equipment: The patient reports that he does have a CPAP machine that he uses at night. This is through [facility] in [place]. CM/SS discussed using this DME for oxygen if he qualifies. Patient is agreeable. Resources: Patient denies being set up for any resources. Supports: The patient reports that one of his son's live down the road (3 miles) and his other 2 children live in [place] and [place]. CM/SS will continue to follow. Addendum: 10/24/20 at 1055 by ODALIS BREWSTER The patient did not qualify for home oxygen.
[2020-10-24] MEDS: GABAPENTIN 300 MG (NEURONTIN) CAP PO SCH ×2 (09:53→12:14)
[2020-10-24 12:00] VITALS: BP 133/62
[2020-10-24] MEDS ORDERED: BENZ-13 PO (12:14)
[2020-10-24] MEDS ORDERED: PRD20T PO (12:14)
--- NOTE | 2020-10-24 12:22 | Discharge Inst-Simple/Standard ---
Discharge Inst-Standard Patient Instructions/Follow Up Plan of Care/Instructions/FU: Please continue to take your medications as written. Please follow up with your primary care doctor to follow up this hospital stay and with your pulmnologist as well. Please continue to wear a mask to slow the spread of COVID. Activity as Tolerated: Yes Discharge Diet: Cardiac Diet Return to The Hospital For: Chest pain, shortness of breath, wheezing, fever, confusion, if you feel you are getting worse. REDDY EDWARDS MD Oct 24, 2020 12:21
[2020-10-24 14:02] VITALS: BP 133/62
--- NOTE | 2020-10-24 17:29 | Discharge Summary ---
JON CAUSEY MED STUDENT 10/24/20 1729: Diagnosis/Chief Complaint Date of Admission Oct 22, 2020 at 15:56 Date of Discharge Oct 24, 2020 at 13:30 Discharge Date: Oct 24, 2020 Discharge Time: 12:22 Admission Diagnosis COPD exacerbation, Hypoxia Primary Care BradenDeion Alexys DO Discharge Diagnosis COPD PAF T2DM CHF HTN Discharge Summary Discharge Physical Exam Allergies: Coded Allergies: No Known Drug Allergies (Unverified , 10/22/20) Vitals & I&Os Vital Signs Date Time Temp Pulse Resp B/P (MAP) Pulse Ox O2 Delivery O2 Flow Rate FiO2 10/24/20 14:02 36.3 56 20 133/62 94 Room Air 3.00 General Appearance: No Apparent Distress, WD/WN, Obese HEENT: PERRL/EOMI, Normal ENT Inspection, Pharynx Normal, Moist Mucous Membra anthony Respiratory: Chest Non Tender, Lungs Clear, No Accessory Muscle Use, No Respiratory Distress, Decreased Breath Sounds, Other (productive cough with clear sputum) Cardiovascular: No Edema, No Gallop, No JVD, No Murmur, Normal Peripheral Pulses, Bradycardia Gastrointestinal: Normal Bowel Sounds, Non Tender, Soft Extremity: Normal Capillary Refill, Normal Inspection, Normal Range of Motion, Non Tender, No Pedal Edema Skin: Normal Color, Warm/Dry Neurologic/Psychiatric: Alert, Oriented x3, Normal Mood/Affect, Sensory Deficit (mild numbness/tingling to extremities x4) Hospital Course Was the Problem List Reviewed?: Yes Jose was admitted on 10/22/20 after about a week of worsening dyspnea and productive cough. He was started on IV steroids, albuterol inhaler, and placed on nasal cannula O2. Initially, his INR was sub-therapeutic 1.6-1.7 on his first two days but resolved on the final day to 2.0 without altering his Warfarin regimen. His hospital stay was uneventful with progressive improvement of his dyspnea and successful weaning from O2 therapy prior to discharge. Labs (last 24 hrs) Laboratory Tests 10/23/20 20:10: Glucometer 204H 10/24/20 05:45: White Blood Count 19.0H, Red Blood Count 4.37, Hemoglobin 14.2, Hematocrit 41, Mean Corpuscular Volume 93, Mean Corpuscular Hemoglobin 33, Mean Corpuscular Hemoglobin Concent 35, Red Cell Distribution Width 13.2, Platelet Count 214, Mean Platelet Volume 10.3, Prothrombin Time 23.3H, INR Comment 2.0H, Sodium Level 137, Potassium Level 4.2, Chloride Level 103, Carbon Dioxide Level 22, Anion Gap 12, Blood Urea Nitrogen 27H, Creatinine 1.05, Estimat Glomerular Filtration Rate > 60, BUN/Creatinine Ratio 26, Glucose Level 158H, Calcium Level 8.9 10/24/20 05:59: Glucometer 175H 10/24/20 10:34: Glucometer 139H Microbiology 10/22/20 Blood Culture - Preliminary, Resulted No growth 10/22/20 Urine Culture - Final, Complete NO GROWTH 10/22/20 Influenza Types A,B Antigen (ELISABETH) - Final, Complete Patient resulted labs reviewed. Pending Labs Laboratory Tests 10/24/20 10:34: Glucometer 139 Radiology Reviewed CXR Imaging: Reviewed Imaging Films, Reviewed Imaging Report Discharge Home Medications: Active Scripts Active Tessalon Perle (Benzonatate) 100 Mg Capsule 100 Mg PO TID Prednisone 20 Mg Tab 40 Mg PO DAILY 5 Days Reported Calcium (Calcium Carbonate) 600 Mg Tablet 600 Mg PO DAILY Fish Oil 500 mg Softgel ([place]-3/Dha/Epa/Fish Oil) 1 Each Capsule 1 Each PO DAILY Super B-50 Complex (Vitamin B Complex) 1 Each Capsule 1 Each PO DAILY Warfarin Sodium 5 Mg Tablet 2.5 Mg PO SAT TAKES 1 & (5MG) TABS ON FRI,FRI &FRI TAKES 1 TAB (5MG) ON , & FRI TAKES (5MG) TAB ON SAT Warfarin Sodium 5 Mg Tablet 5 Mg PO ,FRI,FRI TAKES 1 & (5MG) TABS ON SUN,FRI &FRI TAKES 1 TAB (5MG) ON , & FRI TAKES (5MG) TAB ON SAT Clonazepam 0.5 Mg Tablet 0.5 Mg PO HS Neurontin (Gabapentin) 300 Mg Capsule 300 Mg PO TID Pravastatin Sodium 20 Mg Tablet 20 Mg PO HS Warfarin Sodium 5 Mg Tablet 7.5 Mg PO FRI,FRI,FRI TAKES 1 & (5MG) TABS ON FRI,FRI &FRI TAKES 1 TAB (5MG) ON , & FRI TAKES (5MG) TAB ON SAT Clonazepam 0.5 Mg Tablet 0.25 Mg PO 1800 Potassium Chloride 20 Meq Tab.er.prt 20 Meq PO DAILY Carvedilol 25 Mg Tablet 25 Mg PO BID Metformin HCl ER (Metformin HCl) 750 Mg Tab.er.24h 750 Mg PO BID Furosemide 40 Mg Tablet 40 Mg PO DAILY Albuterol Sulfate 2.5 Mg/3 Ml Vial.neb 3 Ml NEB Q4 -6H PRN Incruse Ellipta (Umeclidinium [place]) 62.5 Mcg Blst.w.dev 1 Puff INH DAILY Citalopram HBr (Citalopram Hydrobromide) 20 Mg Tablet 10 Mg PO BID TAKES OF A 20MG TAB Pantoprazole Sodium 40 Mg Tablet.dr 40 Mg PO DAILY Losartan Potassium 50 Mg Tablet 50 Mg PO DAILY Digoxin 250 Mcg Tablet 250 Mcg PO HS Instructions to patient/family Please see electronic discharge instructions given to patient. Clinical Quality Measures DVT/VTE Risk/Contraindication: Risk Factor Score Per Nursin RFS Level Per Nursing on Admit: 4+=Very High REDDY ZAPATA MD 10/24/202049: Discharge Summary Discharge Physical Exam Allergies: Coded Allergies: No Known Drug Allergies (Unverified , 10/22/20) Discussion & Recommendations Discharge Planning: >30 minutes discharge planning Supervisory-Addendum Brief Verification & Attestation Participated in pt care: history, MDM, physical Personally performed: exam, history, MDM, supervision of care Care discussed with: Medical Student Procedures: n/a Results interpretation: Verified all documentation Verification and Attestation of Medical Student E/M Service A medical student performed and documented this service in my presence. I reviewed and verified all information documented by the medical student and made modifications to such information, when appropriate. I personally performed the physical exam and medical decision making. Reddy Zapata, Oct 24, 2020,20:48 JON CAUSEY MED STUDENT Oct 24, 2020 17:29 REDDY ZAPATA MD Oct 24, 2020 20:50
[2020-10-24] MEDS ORDERED: warFARin 5 MG (COUMADIN) TAB PO SCH (18:00)
[2020-10-24] MEDS ORDERED: clonazePAM 0.5 MG (KlonoPIN) TAB PO SCH (21:00)
[2020-10-24] MEDS ORDERED: PRAVASTATIN 20 MG (PRAVACHOL) TAB NON-FORMULARY PO SCH (21:00)
[2020-10-25] MEDS ORDERED: UMECLIDINIUM BROMIDE (INCRUSE ELLIPTA) 7'S IH SCH (08:00)
[2020-10-25] MEDS ORDERED: DIGOXIN 0.25 MG (LANOXIN) TAB PO SCH (09:00)
== END 2020-10-24 14:02 | disposition home or self-care (01) ==
LOC: EDUNIT# 13:18 → ER 13:25 → 4TH 15:56 → UNDOADMOB 15:56 → 4TH 16:54 → UNDODISOB 10-24 13:30
PROVIDERS: ADMIT Internal Medicine; ATTEND Internal Medicine
DX: J44.1 Chronic obstructive pulmonary disease with (acute) exacerbation (principal); I48.0 Paroxysmal atrial fibrillation; E11.9 Type 2 diabetes mellitus without complications; I11.0 Hypertensive heart disease with heart failure; I50.9 Heart failure, unspecified; Z79.84 Long term (current) use of oral hypoglycemic drugs; Z79.899 Other long term (current) drug therapy; Z87.891 Personal history of nicotine dependence; Z20.828 Contact with and (suspected) exposure to other viral communicable diseases
CPT/HCPCS: 71045; 80048 ×2; 80053; 80162; 81000; 82962 ×3; 83605; 83615; 84145; 85025; 85027; 85379; 85610 ×3; 85730; 86141; 87040; 87088; 87804; 94640 ×3; 94664; 94760 ×2; 94761; 99284; G0378; U0002; 36415; 87635

== ENCOUNTER 2021-12-23 18:09 | Inpatient (IN) | payer MEDICARE ==
[~2021-12-23] VITALS: Ht 175.3 cm; Wt 113.6 kg
[~2021-12-23 18:09] MED LIST: ALBU2.5V4 NEB; BENZ-13 PO; CALC600T91 PO; CARV25TA PO; CITA20TA9 PO; CLON0.5T4 PO; DIGO250T3 PO; FISH1CAP15 PO; FURO40TA4 PO; GABA300C PO; LOSA50TA63 PO; METF750T45 PO; OMEG-33 PO; PANT40TA52 PO; POTA-179 PO; PRAV20TA3 PO; PRD20T PO; UMEC62.5 INH; VITA1CAP19 PO; WARF-48 PO
[2021-12-23 18:24] LABS: BASOPHILS % (AUTO) 1 % (0-10); EOSINOPHILS # (AUTO) 0.3 10^3/uL (0.0-0.3); EOSINOPHILS % (AUTO) 4 % (0-10); HEMATOCRIT 42 % (40-54); HEMOGLOBIN 14.1 g/dL (13.3-17.7); LYMPHOCYTES # (AUTO) 1.9 10^3/uL (1.0-4.0); LYMPHOCYTES % (AUTO) 22 % (12-44); MEAN CORPUSCULAR HEMOGLOBIN 31 pg (25-34); MEAN CORPUSCULAR HGB CONC 34 g/dL (32-36); MEAN CORPUSCULAR VOLUME 92 fL (80-99); MEAN PLATELET VOLUME 10.3 fL (9.0-12.2); MONOCYTES % (AUTO) 11 % (0-12); NEUTROPHILS # (AUTO) 5.4 10^3/uL (1.8-7.8); NEUTROPHILS % (AUTO) 62 % (42-75); PLATELET COUNT 243 10^3/uL (130-400); WHITE BLOOD COUNT 8.6 10^3/uL (4.3-11.0)
--- NOTE | 2021-12-23 18:32 | ED Neurological Problem ---
General Chief Complaint: Neuro-Stroke Like Symptoms Stated Complaint: WEAKNESS Source: patient Exam Limitations: no limitations History of Present Illness Date Seen by Provider: Dec 23, 2021 Time Seen by Provider: 18:10 Initial Comments Here with report of left arm heaviness and globally weak over the last 3 days. Patient is under a lot of stress due to his just had brain surgery. He is diabetic and does have atrial fibrillation and is on blood thinner which appears to be warfarin. No recent injury or falls. States blood sugars have been ranging from low to high at home. States the pressure in his arm has been intermittent over the last 3 days and he feels wobbly. Arrives with his son and grandson. His other grandson as our manager technical training currently. He was able to walk in unassisted but did seem slightly wobbly. He was able to transfer from wheelchair to bed without difficulty. He is following directions well and answering questions well. He is tearful when talking about his of 52 years and the surgery that she just went through and his concern for her. Timing/Duration: waxing and waning (2 to 3 days), other Severity: moderate Associated Symptoms: No confusion; fatigue; No fever/chills, No nausea/vomiting, No slurred speech; trouble walking; No vision changes; weakness Allergies and Home Medications Allergies Coded Allergies: No Known Drug Allergies (Unverified , 10/22/20) Patient Home Medication List Home Medication List Reviewed: Yes Albuterol Sulfate (Albuterol Sulfate) 2.5 Mg/3 Ml Vial.neb, 3 ML NEB Q4 -6H PRN for SHORTNESS OF BREATH, (Reported) Entered as Reported by: ANA GONZALEZ on 10/22/20 1354 Benzonatate (Tessalon Perle) 100 Mg Capsule, 100 MG PO TID Prescribed by: REDDY EDWARDS on 10/24/20 1214 Calcium Carbonate (Calcium) 600 Mg Tablet, 600 MG PO DAILY, (Reported) Entered as Reported by: NAAHI NAVA on 10/23/20 0926 Carvedilol (Carvedilol) 25 Mg Tablet, 25 MG PO BID, (Reported) Entered as Reported by: ANA GONZALEZ on 10/22/20 1354 Citalopram Hydrobromide (Citalopram HBr) 20 Mg Tablet, 10 MG PO BID, (Reported) Entered as Reported by: ANA GONZALEZ on 10/22/20 135 Clonazepam (Clonazepam) 0.5 Mg Tablet, 0.25 MG PO 1800, (Reported) Entered as Reported by: ANA GONZALEZ on 10/22/20 135 Clonazepam (Clonazepam) 0.5 Mg Tablet, 0.5 MG PO HS, (Reported) Entered as Reported by: ANAHI NAVA on 10/23/20 09 Digoxin (Digoxin) 250 Mcg Tablet, 250 MCG PO HS, (Reported) Entered as Reported by: ANA GONZALEZ on 10/22/201353 Furosemide (Furosemide) 40 Mg Tablet, 40 MG PO DAILY, (Reported) Entered as Reported by: ANA GONZALEZ on 10/22/201353 Gabapentin (Neurontin) 300 Mg Capsule, 300 MG PO TID, (Reported) Entered as Reported by: ANAHI NAVA on 10/23/20 09 Losartan Potassium (Losartan Potassium) 50 Mg Tablet, 50 MG PO DAILY, (Reported) Entered as Reported by: ANA GONZALEZ on 10/22/20 135 Metformin HCl (Metformin HCl ER) 750 Mg Tab.er.24h, 750 MG PO BID, (Reported) Entered as Reported by: ANA GONZALEZ on 10/22/201353 [place]-3/Dha/Epa/Fish Oil (Fish Oil 500 mg Softgel) 1 Each Capsule, 1 EACH PO DAILY, (Reported) Entered as Reported by: ANAHI NAVA on 10/23/20 09 Pantoprazole Sodium (Pantoprazole Sodium) 40 Mg Tablet.dr, 40 MG PO DAILY, (Reported) Entered as Reported by: ANA GONZALEZ on 10/22/20 135 Potassium Chloride (Potassium Chloride) 20 Meq Tab.er.prt, 20 MEQ PO DAILY, (Reported) Entered as Reported by: ANA GONZALEZ on 10/22/20 135 Pravastatin Sodium (Pravastatin Sodium) 20 Mg Tablet, 20 MG PO HS, (Reported) Entered as Reported by: ANA GONZALEZ on 10/22/20 135 Prednisone (Prednisone) 20 Mg Tab, 40 MG PO DAILY Prescribed by: REDDY EDWARDS on 10/24/20 1214 Umeclidinium [place] (Incruse Ellipta) 62.5 Mcg Blst.w.dev, 1 PUFF INH DAILY, (Reported) Entered as Reported by: ANA GONZALEZ on 10/22/20 135 Vitamin B Complex (Super B-50 Complex) 1 Each Capsule, 1 EACH PO DAILY, (Reported) Entered as Reported by: ANAHI NAVA on 10/23/20925 Warfarin Sodium (Warfarin Sodium) 5 Mg Tablet, 7.5 MG PO SUN,FRI,FRI, (Reported) Entered as Reported by: ANA GONZALEZ on 10/22/20 135 Warfarin Sodium (Warfarin Sodium) 5 Mg Tablet, 5 MG PO TU,TAWANA,FRI, (Reported) Entered as Reported by: ANAHI NAVA on 10/23/20925 Warfarin Sodium (Warfarin Sodium) 5 Mg Tablet, 2.5 MG PO SAT, (Reported) Entered as Reported by: ANAHI NAVA on 10/23/20925 Review of Systems Review of Systems Constitutional: see HPI; No chills, No fever Eyes: Denies Pain, Denies Vision Changes Ears, Nose, Mouth, Throat: no symptoms reported Respiratory: No cough, No short of breath Cardiovascular: No chest pain, No edema, No palpitations Gastrointestinal: No abdominal pain, No nausea, No vomiting Genitourinary: no symptoms reported Musculoskeletal: No back pain; muscle pain, muscle weakness Skin: no symptoms reported Psychiatric/Neurological: Anxiety, Depressed, Weakness All Other Systems Reviewed Negative Unless Noted: Yes Past Ljsmzko-Zrpbge-Gfjsgz Hx Patient Social History Tobacco Use?: No Use of E-Cig and/or Vaping dev: No Substance use?: No Alcohol Use?: No Immunizations Up To Date Influenza Vaccine Up-to-Date: Yes; Up-to-Date First/Initial COVID19 Vaccinat: 2020 Second COVID19 Vaccination Romero: 2020 Third COVID19 Vaccination Date: 2020 COVID19 Vaccine Professional Development Manager: UNK TO PT Past Medical History Surgeries: Yes (CYSTS REMOVED) Appendectomy, Tonsillectomy Cardiac: Yes (CHF) Hypertension Neurological: No Genitourinary: No Gastrointestinal: No Musculoskeletal: No Endocrine: Yes Diabetes, Non-Insulin dep Cancer: No Psychosocial: No Integumentary: No Family Medical History Reviewed Nursing Family Hx Colon cancer 19 FATHER Physical Exam Vital Signs Vital Signs - First Documented 12/23/21 18:09 Temp 36.6 Pulse 63 Resp 20 B/P (MAP) 180/102 (128) Pulse Ox 97 O2 Delivery Room Air Capillary Refill : Height, Weight, BMI Height: '" Weight: lbs. oz. kg; 34.63 BMI Method: General Appearance: WD/WN, mild distress (Anxious) HEENT: PERRL/EOMI, pharynx normal Neck: non-tender, full range of motion, supple, normal inspection Respiratory: lungs clear, normal breath sounds Cardiovascular: no murmur, bradycardia, irregularly irregular Gastrointestinal: non tender, soft Back: normal inspection, no CVA tenderness, no vertebral tenderness Extremities: normal range of motion, non-tender, no pedal edema, no calf tenderness Neurologic/Psychiatric: alert, oriented x 3 Crainal Nerves: normal hearing, normal speech, PERRL Coordination/Gait: normal finger to nose, abnormal gait (Appears weak when walking) Motor/Sensory: no motor deficit, no sensory deficit, no pronator drift Skin: normal color, warm/dry Stroke NIH Stroke Scale Assessment Select: Initial Level of Consciousness: 0=Alert (0), Level of Consciousness-Questions: 0=Answers both month/age (0), LOC Commands: 0=Performs both tasks (0), Gaze: Normal (0), Visual Montaño: 0=No visual loss (0), Facial Movement (Facial Paresis): 0=Normal symmetrical mnt (0), Motor Function-Arms Right: 0=No drift (0), Motor Function-Arms Left: 0=No drift (0), Motor Function-Legs Right: 0=No drift (0), Motor Function-Legs Left: 0=No drift (0), Limb Ataxia: 0=Absent (0), Sensory: 0=Normal:no loss (0), Best Language: 0=No aphasia (0), Dysarthria: 0=Normal (0), Extinction & I nattention: 0=No abnormality (0), Total: 0 Stroke Thrombolytic Exclusion Age 18 or Over: Yes Acute intenal hemorrhage: No History of CVA: No Uncontrolled Coagulation Defec: No Intracranial Hemorrhage: No Severe Hypertension: Yes GI or Bleed: No Subarachnoid Hemorrhage: No Intracranial Neoplasm/Aneurysm: No Oral Anticoagulants: Yes Surgery or Trauma: No Puncture of Non-Compressible V: No Recent CPR: No Diabetic Hemorrhagic Retinopat: No Organ Biopsy: No Recent Obstetric Delivery: No Glucose: No Significant Hepatic Dysfunctio: No NIH Stoke Scale >22: No Bacterial Endocarditis: No Pericarditis: No Improving Symptoms: Yes Platelets: No TPA Contraindication: Yes IV - TPa Received IV - TPa Procedure Performed?: No Progress/Results/Core Measures Results/Orders Lab Results Laboratory Tests Test 12/23/21 18:12 12/23/21 18:18 12/23/21 18:35 12/23/21 20:10 Range/Units Glucometer 110 70-110 MG/DL White Blood Count 8.6 4.3-11.0 10^3/uL Red Blood Count 4.53 4.30-5.52 10^6/uL Hemoglobin 14.1 13.3-17.7 g/dL Hematocrit 42 40-54 % Mean Corpuscular Volume 92 80-99 fL Mean Corpuscular Hemoglobin 31 25-34 pg Mean Corpuscular Hemoglobin Concent 34 32-36 g/dL Red Cell Distribution Width 12.8 10.0-14.5 % Platelet Count 243 130-400 10^3/uL Mean Platelet Volume 10.3 9.0-12.2 fL Immature Granulocyte % (Auto) 0 % Neutrophils (%) (Auto) 62 42-75 % Lymphocytes (%) (Auto) 22 12-44 % Monocytes (%) (Auto) 11 0-12 % Eosinophils (%) (Auto) 4 0-10 % Basophils (%) (Auto) 1 0-10 % Neutrophils # (Auto) 5.4 1.8-7.8 10^3/uL Lymphocytes # (Auto) 1.9 1.0-4.0 10^3/uL Monocytes # (Auto) 1.0 0.0-1.0 10^3/uL Eosinophils # (Auto) 0.3 0.0-0.3 10^3/uL Basophils # (Auto) 0.0 0.0-0.1 10^3/uL Immature Granulocyte # (Auto) 0.0 0.0-0.1 10^3/uL Prothrombin Time 25.0 H 12.2-14.7 SEC INR Comment 2.2 H 0.8-1.4 Activated Partial Thromboplast Time 45 H 24-35 SEC D-Dimer 0.05 0.00-0.49 UG/ML Sodium Level 134 L 135-145 MMOL/L Potassium Level 3.5 L 3.6-5.0 MMOL/L Chloride Level 98 98-107 MMOL/L Carbon Dioxide Level 23 21-32 MMOL/L Anion Gap 13 5-14 MMOL/L Blood Urea Nitrogen 14 7-18 MG/DL Creatinine 1.09 0.60-1.30 MG/DL Estimat Glomerular Filtration Rate 71 BUN/Creatinine Ratio 13 Glucose Level 116 H 70-105 MG/DL Calcium Level 9.6 8.5-10.1 MG/DL Corrected Calcium 9.4 8.5-10.1 MG/DL Total Bilirubin 0.5 0.1-1.0 MG/DL Aspartate Amino Transf (AST/SGOT) 17 5-34 U/L Alanine Aminotransferase (ALT/SGPT) 23 0-55 U/L Alkaline Phosphatase 40 40-136 U/L Troponin I < 0.028 < 0.028 <0.028 NG/ML Total Protein 6.5 6.4-8.2 GM/DL Albumin 4.2 3.2-4.5 GM/DL Urine Color YELLOW Urine Clarity CLEAR Urine pH 7.0 5-9 Urine Specific [place] <=1.005 1.016-1.022 Urine Protein NEGATIVE NEGATIVE Urine Glucose (UA) NEGATIVE NEGATIVE Urine Ketones NEGATIVE NEGATIVE Urine Nitrite NEGATIVE NEGATIVE Urine Bilirubin NEGATIVE NEGATIVE Urine Urobilinogen 0.2 < = 1.0 MG/DL Urine Leukocyte Esterase NEGATIVE NEGATIVE Urine RBC (Auto) 1+ H NEGATIVE Urine RBC RARE /HPF Urine WBC RARE /HPF Urine Squamous Epithelial Cells NONE /HPF Urine Renal Epithelial Cells NONE /HPF Urine Crystals NONE /LPF Urine Bacteria NEGATIVE /HPF Urine Casts NONE /LPF Urine Mucus NEGATIVE /LPF Urine Culture Indicated NO My Orders Orders - RENETTA VERMA MD Cbc With Automated Diff (12/23/21 18:19) Protime With Inr (12/23/21 18:19) Partial Thromboplastin Time (12/23/21 18:19) Comprehensive Metabolic Panel (12/23/21 18:19) Fibrin Degradation Products (12/23/21 18:19) Troponin I [place] (12/23/21 18:19) Ua Culture If Indicated (12/23/21 18:19) Chest 1 View, Ap/Pa Only (12/23/21 18:19) Ekg Tracing (12/23/21 18:19) Nothing By Mouth (12/23/21 Dinner) Accucheck Stat ONCE (12/23/21 18:19) Ed Iv/Invasive Line Start (12/23/21 18:19) Vital Signs Stroke Patient Q15M (12/23/21 18:19) Ct Head Wo-R/O Stroke (12/23/21 18:19) O2 (12/23/21 18:19) Intake & Output 06,14,22 (12/23/21 18:19) Monitor-Rhythm Ecg Trace Only (12/23/21 18:19) Dysphagia Screening Tool Q10MX1 (12/23/21 18:19) Lipid Panel (12/24/21 06:00) Ns Iv 500 Ml (Sodium Chloride 0.9%) (12/23/21 19:15) Ct Angio Head/Neck (12/23/21 19:43) Troponin I Fly (12/23/21 20:06) Iohexol Injection (Omnipaque 350 Mg/Ml 1 (12/23/21 20:15) Received Contrast (Hold Metformin- Contr (12/23/21 20:15) Ns (Ivpb) (Sodium Chloride 0.9% Ivpb Bag (12/23/21 20:15) Warfarin Tablet (Coumadin Tablet) (12/23/21 21:15) Lorazepam Injection (Ativan Injection) (12/23/21 21:45) Carvedilol Tablet (Coreg Tablet) (12/23/21 21:45) Medications Given in ED Current Medications Medications Dose Ordered Sig/Divya Route Start Time Stop Time Status Last Admin Dose Admin Iohexol 75 ml ONCE ONCE IV 12/23/21 20:15 12/23/21 20:16 DC 12/23/21 20:08 75 ML Sodium Chloride 100 ml ONCE ONCE IV 12/23/21 20:15 12/23/21 20:16 DC 12/23/21 20:09 80 ML Sodium Chloride 500 ml @ 0 mls/hr Q0M ONCE IV 12/23/21 19:15 12/23/21 19:16 DC 12/23/21 19:15 0 MLS/HR Vital Signs/I&O 12/23/21 18:09 Temp 36.6 Pulse 63 Resp 20 B/P (MAP) 180/102 (128) Pulse Ox 97 O2 Delivery Room Air FSBG Bedside Testing Finger Stick Blood Glucose: 110 Blood Glucose Action Taken: RN NOTIFIED Progress Progress Note : Progress Note Seen and evaluated on arrival by POV. Patient exam performed and stroke scale 0 by me. Stroke protocol initiated. Blood pressure 200s systolic and patient is on warfarin which would exclude him from TPA but also he has no obvious deficit other than left arm heaviness. He is under a lot of stress and this may be more cardiac related and we will evaluate for that as well. EKG done and patient to CT A. Monitor patient. 1902 notified by radiology that CT does not show any acute findings but does have some chronic findings. Overall he is doing better blood pressures 170s over 90s currently. This may be stress some blood pressure related. We will give normal saline 500 mL bolus and continue to monitor. 1941: We will go ahead and get CT angiogram of the head and neck. Patient would like to go home eventually but he also wants to make sure that he is safe. Blood pressure 150s over 70s currently and he is feeling better. This all may b e stress-induced due to current situation with included hypertension but we need to rule out vascular abnormalities of the head and neck. This was discussed with patient and family who agree. CT angiogram head neck ordered. Monitor patient. 2100: CT results show some stenosis of the carotid arteries and recommend ultrasound carotid arteries for further evaluation. I did talk with the patient and family. He is feeling a little bad again and due to the weakness and waxing and waning symptoms, observation admission indicated. We will get carotid Doppler ultrasound in the morning. Ativan 0.5 mg IV now for anxiousness. We will continue carvedilol twice daily, losartan daily, digoxin daily and I did give him his dose of warfarin 7.5 mg p.o. now. All of the findings and concerns were discussed with patient and family who agree with plan. They are bringing his medicines and. He did not take his night medicines tonight so we will give the carvedilol and warfarin as discussed above. Admit, observation status. Patient and family agree with plan. Initial ECG Impression Date: Dec 23, 2021 Initial ECG Impression Time: 17:14 Initial ECG Rate: 56 Initial ECG Rhythm: A Fib/Flutter Initial ECG Comparisson: No Previous ECG Available Comment Atrial fibrillation with normal axis. No evidence of ST elevation NV. Nonspecific interventricular conduction delay noted QRS duration of 117. No previous available for comparison. Interpreted by me. Diagnostic Imaging Diagonstic Imaging: Xray Plain Films/CT/US/NM/MRI: chest Comments [facility] [place], [place] NAME: AMY SAMUELS [facility] REC#: [id number] PT STATUS: REG ER : 1945 PHYSICIAN: RENETTA VERMA MD ADMIT DATE: 12/23/21/ER Draft Date of Exam:12/23/21 CHEST 1 VIEW, AP/PA ONLY INDICATION: Stroke. COMPARISON: 10/22/2020. FINDINGS: Single frontal view of the chest demonstrates mild cardio mainly. Pulmonary vascularity however is within normal limits. The lungs are well aerated and clear. No large pleural effusion or pneumothorax is seen. The visualized osseous structures show no acute abnormality. IMPRESSION: Myocardial megaly, but no evidence of failure or focal infiltrate. Dictated on workstation # [id number] Dict: 12/23/211844 Trans: 12/23/211848 [facility] [id number] Interpreted by: EVERTON BRANHAM MD Electronically signed by: Diagonstic Imaging: CT Plain Films/CT/US/NM/MRI: head Comments [facility] [place], [place] NAME: AMY SAMUELS [facility] REC#: [id number] PT STATUS: REG ER : 1945 PHYSICIAN: RENETTA VERMA MD ADMIT DATE: 12/23/21/ER Draft Date of Exam:12/23/21 CT HEAD WO-R/O STROKE INDICATION: Neuro deficit, weakness. TECHNIQUE: Routine non contrast-enhanced axial images were obtained from the skull base to the vertex. Auto Exposure Controls were utilized during the CT exam to meet ALARA standards for radiation dose reduction COMPARISON: None. FINDINGS: The ventricles and cortical sulci are diffusely prominent, compatible with age-related volume loss. There are confluent areas of abnormal, low attenuation in the periventricular white matter. This is consistent with small vessel ischemic changes; age-indeterminate. There is no prior study available for comparison. There is no midline shift or mass-effect. No acute intra-axial hemorrhage is seen. There are no abnormal areas of increased or decreased density to suggest acute hemorrhage or edema. No extra-axial masses or collections are present. The bony calvarium is intact. The visualized paranasal sinuses show mild scattered mucosal thickening with some debris in the right maxillary sinus. The mastoid air cells are clear. IMPRESSION: 1. No acute intracranial abnormality. No CT evidence of mass, acute infarct or intracranial hemorrhage. 2. Small vessel ischemic changes in the periventricular and subcortical white matter; likely chronic. Report was called to the [facility] at 7:03 p.m., by stephanie. Dictated on workstation # [id number] Dict: 12/23/21 1835 Trans: 12/23/211903 PJChristine [id number] Interpreted by: EVERTON BRANHAM MD Electronically signed by: Reviewed: Reviewed by Me, Discussed w/Radiologist Diagonstic Imaging: CT Plain Films/CT/US/NM/MRI: head, other Comments [facility] [place] [place] NAME: AMY SAMUELS [facility] REC#: [id number] PT STATUS: REG ER : 1945 PHYSICIAN: RENETTA VERMA MD ADMIT DATE: 12/23/21/ER Draft Date of Exam:12/23/21 CT ANGIO HEAD/NECK PROCEDURE: CT angiography of the head and CT angiography of the neck with and without contrast. TECHNIQUE: Contiguous noncontrast images were obtained from the skull base through the vertex. After intravenous contrast administration, helical CT angiography of the neck was performed. Source data was reformatted into 3D MIP projections. Delayed post contrast acquisition was also obtained. Auto Exposure Controls were utilized during the CT exam to meet ALARA standards for radiation dose reduction. INDICATION: Left upper extremity paresthesia. COMPARISON: Noncontrast CT head from earlier the same day. FINDINGS: CTA NECK: Included portions of the aortic arch show moderate calcified atherosclerosis. Note is also made of aberrant course of the right subclavian artery. Origins of the bilateral common carotid arteries are not included in the [id number]-[id number] air and visualized portions of the bilateral common carotid arteries show no acute abnormality. There is no evidence of dissection or thrombosis. There is mild to moderate calcified atherosclerosis of the right carotid bulb extending into the proximal right internal carotid artery. Based on NASCET criteria, this results in approximately 30-40% stenosis. There is also mild calcified atherosclerosis of the left bulb extending into the proximal left internal carotid artery. There is however no focal significant stenosis. No acute abnormality of the internal carotid arteries is seen on either side. There is no evidence of dissection or thrombosis. Within the posterior circulation, the left vertebral artery is dominant. Right vertebral artery arises from the right subclavian artery. It is diminutive in its appearance, but is patent and shows no convincing evidence of acute abnormality. Left vertebral artery is also patent without evidence of dissection or thrombosis. Osseous structures show no acute abnormality. Multilevel degenerative changes are noted. Included portions of the lung apices are unremarkable. CTA [place]: There is normal opacification of the bilateral anterior and middle cerebral arteries. There is no evidence of large vessel occlusion, aneurysm or vascular malformation. Within the posterior circulation, there is normal appearance of the basilar artery. There is normal enhancement of the bilateral superior cerebellar and bilateral posterior cerebral arteries. Right posterior communicating artery is patent. Left posterior communicating artery is not well visualized. There is no evidence of large vessel occlusion, aneurysm or vascular malformation within the posterior circulation. POSTCONTRAST CT HEAD: Postcontrast images show no abnormal areas of enhancement. There is no new mass effect or midline shift. Ventricles and cortical sulci remain mildly diffusely prominent consistent with age-related parenchymal volume loss. There are scattered patchy areas of diminished attenuation within the periventricular and subcortical deep white matter. Findings are consistent with small vessel ischemic changes; most likely chronic. There is no large area of loss of normal richard-white matter junction differentiation to suggest evolving acute territorial infarct. No intra-axial or extra-axial intracranial hemorrhage is seen. No other extra-axial masses or fluid collections are identified. Bony calvarium is intact. Paranasal sinuses show scattered mucosal thickening. Air-fluid level is present within the left sphenoid and right maxillary sinuses. IMPRESSION: 1. No acute vascular abnormality of the neck is seen. 2. Aberrant course of the right subclavian artery. 3. Calcified atherosclerosis of the bilateral carotid bulbs and proximal portions of bilateral internal carotid arteries. Correlation with carotid Doppler is recommended. 4. No acute intracranial vascular abnormality. No CTA evidence of large vessel occlusion, aneurysm or vascular malformation. 5. No new acute intracranial abnormality. No CT evidence of acute infarct, mass or hemorrhage. Dictated on workstation # [id number] Dict: 12/23/212007 Trans: 12/23/212025 E [id number] Interpreted by: EVERTON BRANHAM MD Electronically signed by: CT Read Date: Dec 23, 2021 CT Read Time: 19:03 Departure Communication (Admissions) Time/Spoke to Admitting Phy: 21:01 Impression Primary Impression: Weakness Additional Impressions: Hypertension Qualified Codes: I10 - Essential (primary) hypertension Anxiety Disposition: ADMITTED INPATIENT Condition: Stable Admissions Decision to Admit Reason: Admit from ER (General) Decision to Admit/Date: Dec 23, 2021 Time/Decision to Admit Time: 21:01 Departure-Patient Inst. Referrals: RIVAS SANDERS DO (PCP/Family) Primary Care Physician RENETTA VERMA MD Dec 23, 2021 18:32
[2021-12-23 18:36] LABS: ALBUMIN 4.2 GM/DL (3.2-4.5); CHLORIDE 98 MMOL/L (98-107); POTASSIUM 3.5 MMOL/L (3.6-5.0); SODIUM 134 MMOL/L (135-145)
[2021-12-23 18:37] LABS: CALCIUM 9.6 MG/DL (8.5-10.1)
[2021-12-23 18:38] LABS: GLUCOSE 116 MG/DL (70-105); TOTAL PROTEIN 6.5 GM/DL (6.4-8.2)
[2021-12-23 18:39] LABS: CARBON DIOXIDE 23 MMOL/L (21-32)
[2021-12-23 18:40] LABS: BILIRUBIN,TOTAL 0.5 MG/DL (0.1-1.0)
[2021-12-23 18:42] LABS: ALKALINE PHOSPHATASE 40 U/L (40-136); CREATININE SERUM 1.09 MG/DL (0.60-1.30); GFR ESTIMATED 71
[2021-12-23 18:43] LABS: BILIRUBIN,URINE NEGATIVE (NEGATIVE); CLARITY,URINE CLEAR; COLOR,URINE YELLOW; GLUCOSE, URINE (UA) NEGATIVE (NEGATIVE); KETONES,URINE NEGATIVE (NEGATIVE); LEUKOCYTE ESTERASE ,URINE NEGATIVE (NEGATIVE); NITRITE,URINE NEGATIVE (NEGATIVE); PROTEIN,URINE NEGATIVE (NEGATIVE)
[2021-12-23 18:43] LABS: BUN/CREATININE RATIO 13
[2021-12-23 18:45] LABS: ALANINE AMINOTRANSFERASE 23 U/L (0-55)
[2021-12-23 18:46] LABS: FIBRIN DEGRADATION PRODUCTS 0.05 UG/ML (0.00-0.49); INR 2.2 (0.8-1.4)
--- NOTE | 2021-12-23 18:49 | Diagnostic Imaging Report ---
INDICATION: Stroke. COMPARISON: 10/22/2020. FINDINGS: Single frontal view of the chest demonstrates mild cardio mainly. Pulmonary vascularity however is within normal limits. The lungs are well aerated and clear. No large pleural effusion or pneumothorax is seen. The visualized osseous structures show no acute abnormality. IMPRESSION: Myocardial megaly, but no evidence of failure or focal infiltrate. Dictated by: Dictated on workstation # [id number]
[2021-12-23 18:50] LABS: BACTERIA,URINE NEGATIVE /HPF; RBC,URINE RARE /HPF; WBC,URINE RARE /HPF
--- NOTE | 2021-12-23 19:06 | Diagnostic Imaging Report ---
INDICATION: Neuro deficit, weakness. TECHNIQUE: Routine non contrast-enhanced axial images were obtained from the skull base to the vertex. Auto Exposure Controls were utilized during the CT exam to meet ALARA standards for radiation dose reduction COMPARISON: None. FINDINGS: The ventricles and cortical sulci are diffusely prominent, compatible with age-related volume loss. There are confluent areas of abnormal, low attenuation in the periventricular white matter. This is consistent with small vessel ischemic changes; age-indeterminate. There is no prior study available for comparison. There is no midline shift or mass-effect. No acute intra-axial hemorrhage is seen. There are no abnormal areas of increased or decreased density to suggest acute hemorrhage or edema. No extra-axial masses or collections are present. The bony calvarium is intact. The visualized paranasal sinuses show mild scattered mucosal thickening with some debris in the right maxillary sinus. The mastoid air cells are clear. IMPRESSION: 1. No acute intracranial abnormality. No CT evidence of mass, acute infarct or intracranial hemorrhage. 2. Small vessel ischemic changes in the periventricular and subcortical white matter; likely chronic. Report was called to the [facility] at 7:03 p.m., by stephanie. Dictated by: Dictated on workstation # [id number]
[2021-12-23] MEDS ORDERED: NS IV 500 ML 500 ML IV ONE (19:15)
[2021-12-23] MEDS ORDERED: IOHEXOL 350 MG/ML 100 ML (OMNIPAQUE 350) VIAL IV ONE (20:15)
[2021-12-23] MEDS ORDERED: HOLD METFORMIN - RECEIVED CONTRAST 20 ML VIAL IV SCH (20:15)
[2021-12-23] MEDS ORDERED: NS 100 ML (IVPB) BAG IV ONE (20:15)
--- NOTE | 2021-12-23 20:26 | Diagnostic Imaging Report ---
PROCEDURE: CT angiography of the head and CT angiography of the neck with and without contrast. TECHNIQUE: Contiguous noncontrast images were obtained from the skull base through the vertex. After intravenous contrast administration, helical CT angiography of the neck was performed. Source data was reformatted into 3D MIP projections. Delayed post contrast acquisition was also obtained. Auto Exposure Controls were utilized during the CT exam to meet ALARA standards for radiation dose reduction. INDICATION: Left upper extremity paresthesia. COMPARISON: Noncontrast CT head from earlier the same day. FINDINGS: CTA NECK: Included portions of the aortic arch show moderate calcified atherosclerosis. Note is also made of aberrant course of the right subclavian artery. Origins of the bilateral common carotid arteries are not included in the sisay-le-prmj air and visualized portions of the bilateral common carotid arteries show no acute abnormality. There is no evidence of dissection or thrombosis. There is mild to moderate calcified atherosclerosis of the right carotid bulb extending into the proximal right internal carotid artery. Based on NASCET criteria, this results in approximately 30-40% stenosis. There is also mild calcified atherosclerosis of the left bulb extending into the proximal left internal carotid artery. There is however no focal significant stenosis. No acute abnormality of the internal carotid arteries is seen on either side. There is no evidence of dissection or thrombosis. Within the posterior circulation, the left vertebral artery is dominant. Right vertebral artery arises from the right subclavian artery. It is diminutive in its appearance, but is patent and shows no convincing evidence of acute abnormality. Left vertebral artery is also patent without evidence of dissection or thrombosis. Osseous structures show no acute abnormality. Multilevel degenerative changes are noted. Included portions of the lung apices are unremarkable. CTA [place]: There is normal opacification of the bilateral anterior and middle cerebral arteries. There is no evidence of large vessel occlusion, aneurysm or vascular malformation. Within the posterior circulation, there is normal appearance of the basilar artery. There is normal enhancement of the bilateral superior cerebellar and bilateral posterior cerebral arteries. Right posterior communicating artery is patent. Left posterior communicating artery is not well visualized. There is no evidence of large vessel occlusion, aneurysm or vascular malformation within the posterior circulation. POSTCONTRAST CT HEAD: Postcontrast images show no abnormal areas of enhancement. There is no new mass effect or midline shift. Ventricles and cortical sulci remain mildly diffusely prominent consistent with age-related parenchymal volume loss. There are scattered patchy areas of diminished attenuation within the periventricular and subcortical deep white matter. Findings are consistent with small vessel ischemic changes; most likely chronic. There is no large area of loss of normal richard-white matter junction differentiation to suggest evolving acute territorial infarct. No intra-axial or extra-axial intracranial hemorrhage is seen. No other extra-axial masses or fluid collections are identified. Bony calvarium is intact. Paranasal sinuses show scattered mucosal thickening. Air-fluid level is present within the left sphenoid and right maxillary sinuses. IMPRESSION: 1. No acute vascular abnormality of the neck is seen. 2. Aberrant course of the right subclavian artery. 3. Calcified atherosclerosis of the bilateral carotid bulbs and proximal portions of bilateral internal carotid arteries. Correlation with carotid Doppler is recommended. 4. No acute intracranial vascular abnormality. No CTA evidence of large vessel occlusion, aneurysm or vascular malformation. 5. No new acute intracranial abnormality. No CT evidence of acute infarct, mass or hemorrhage. Dictated by: Dictated on workstation # [id number]
[2021-12-23] MEDS ORDERED: warFARin 7.5 MG (COUMADIN) TAB PO ONE (21:15)
[2021-12-23] MEDS ORDERED: LORazepam INJ 2 MG/ML (ATIVAN) VIAL IVP ONE (21:45)
[2021-12-23 22:12] VITALS: BP 167/89
[2021-12-23] MEDS ORDERED: LORazepam INJ 2 MG/ML (ATIVAN) VIAL IV PRN (23:30)
[2021-12-23 23:40] VITALS: BP 162/74
[2021-12-23] MEDS ORDERED: warFARin 7.5 MG (COUMADIN) TAB ONE (23:46)
[2021-12-23] MEDS: CATHETER FLUSH 10 ML SYR IVP SCH (23:49)
[2021-12-23 23:56] VITALS: BP 180/102
[2021-12-24] VITALS (16 sets, daily range): BP systolic 101–190; BP diastolic 55–109
[2021-12-24] MEDS ORDERED: RT-ALBUTEROL SULF 2.5 MG/3 ML PRE-MIX VIAL INH PRN (00:15)
[2021-12-24 05:50] LABS: BASOPHILS % (AUTO) 1 % (0-10); EOSINOPHILS # (AUTO) 0.3 10^3/uL (0.0-0.3); EOSINOPHILS % (AUTO) 4 % (0-10); HEMATOCRIT 39 % (40-54); HEMOGLOBIN 13.3 g/dL (13.3-17.7); LYMPHOCYTES # (AUTO) 1.4 10^3/uL (1.0-4.0); LYMPHOCYTES % (AUTO) 20 % (12-44); MEAN CORPUSCULAR HEMOGLOBIN 31 pg (25-34); MEAN CORPUSCULAR HGB CONC 34 g/dL (32-36); MEAN CORPUSCULAR VOLUME 93 fL (80-99); MEAN PLATELET VOLUME 10.5 fL (9.0-12.2); MONOCYTES # (AUTO) 0.9 10^3/uL (0.0-1.0); MONOCYTES % (AUTO) 13 % (0-12); NEUTROPHILS # (AUTO) 4.2 10^3/uL (1.8-7.8); NEUTROPHILS % (AUTO) 62 % (42-75); PLATELET COUNT 210 10^3/uL (130-400); WHITE BLOOD COUNT 6.8 10^3/uL (4.3-11.0)
[2021-12-24 06:02] LABS: POTASSIUM 3.7 MMOL/L (3.6-5.0)
[2021-12-24 06:03] LABS: CALCIUM 9.3 MG/DL (8.5-10.1)
[2021-12-24 06:08] LABS: CREATININE SERUM 0.91 MG/DL (0.60-1.30)
--- NOTE | 2021-12-24 08:13 | Diagnostic Imaging Report ---
PROCEDURE: US carotid duplex, bilateral. TECHNIQUE: Multiple real-time grayscale images were obtained over the carotid arteries in various projections, bilaterally. Additional spectral analysis and color Doppler duplex images were also obtained. INDICATION: Hypertension. Evaluate for elevated flow velocities. Atherosclerotic plaque on CT. COMPARISON: 12/23/2021. FINDINGS: Right carotid circulation: The right common carotid artery is normal in course and caliber. Atherosclerotic plaque is seen throughout the right carotid system. No hemodynamically significant stenosis is present. Left carotid circulation: The left common carotid artery is normal in course and caliber. Intimal thickening and atherosclerotic plaque are seen throughout the left carotid system. No hemodynamically significant stenosis is present. Flow in the bilateral vertebral arteries is antegrade. IMPRESSION: 1. Mild to moderate atherosclerosis involving bilateral carotid systems. 2. No sonographic evidence of hemodynamically significant stenosis based on flow velocity criteria. Parameters based on the consensus panel Thrasher-Scale and Doppler ultrasound criteria published August 2003, Radiology, Volume 229. DOPPLER (peak systolic velocity M/S Right Left CCA 1.1 .93 ICA Proximal .80 .56 ICA Mid 1.0 .71 ICA Distal .97 .74 RATIO .87 .80 ECA 1.4 1.1 VERT .45 .60 Dictated by: Dictated on workstation # [id number]
[2021-12-24] MEDS ORDERED: LOSARTAN 50 MG (COZAAR) TAB PO SCH (09:00)
[2021-12-24] MEDS ORDERED: DIGOXIN 0.25 MG (LANOXIN) TAB PO SCH (09:00)
[2021-12-24] MEDS ORDERED: CALC-140 PO (09:59)
[2021-12-24] MEDS ORDERED: VITA-189 PO (09:59)
[2021-12-24] MEDS ORDERED: RT-ALBUINH INH (10:03)
--- NOTE | 2021-12-24 10:08 | Physical Therapy Evaluation ---
PT Evaluation-General Medical Diagnosis Admission Date Dec 23, 2021 at 21:35 Medical Diagnosis: weakness/HTN/anxiety Onset Date: Dec 23, 2021 Therapy Diagnosis Therapy Diagnosis: debility/weakness Precautions Precautions/Isolations: Fall Prevention, Standard Precautions Referral Physician: Marcos Reason for Referral: Evaluation/Treatment Medical History Pertinent Medical History: Atrial Fib, DM, HTN Current History ER secondary to elevated stress with left UE "heaviness" x 3 days Reviewed History: Yes Social History Home: Single Level Current Living Status: Spouse Entry Into Home: Stairs With Railing PT Steps Into Home: 5 Prior Prior Level of Function SCALE: Activities may be completed with or without assistive devices. 5-Ijyvfuyroo-tgkdpsm completes the activity by him/herself with no assistance from a helper. 5-Set-up or Clean-up Assistance-helper sets up or cleans up; patient completes activity. [place] assists only prior to or following the activity. 4-Supervision or Touching Assistance-helper provides verbal cues and/or touching/steadying and/or contact guard assistance as patient completes activity. Assistance may be provided throughout the activity or intermittently. 3-Partial/Moderate Assistance-helper does LESS THAN HALF the effort. [place] lifts, holds or supports trunk or limbs, but provides less than half the effort. 2-Substantial/Maximal Assistance-helper does MORE THAN HALF the effort. [place] lifts or holds trunk or limbs and provides more than half the effort. 3-Qjlucgcww-aqlwot does ALL the effort. Patient does none of the effort to complete the activity. Or, the assistance of 2 or more helpers is required for the patient to complete the activity. If activity was not attempted, code reason: 7-Patient Refused. 9-Not Applicable-not attempted and the patient did not perform the activity before the current illness, exacerbation or injury. 10-Not Attempted due to Environmental Limitations-(lack of equipment, weather restraints, etc.). 88-Not Attempted due to Medical Conditions or Safety Concerns. Bed Mobility: 6 Transfers (B,C,W/C): 6 Gait: 6 Stairs: 6 Indoor Mobility (Ambulation): Independent Stairs: Independent Prior Devices Use: None PT Evaluation-Current Subjective Patient currently up independently in room. Agrees to PT. Objective Patient Orientation: Normal For Age ROM/Strength ROM Lower Extremities bilateral LE WFL Strength Lower Extremities 4-/5 grossly bilateral LE all planes Integumentary/Posture Bowel Incontinence: No Bladder Incontinence: No Posture WFL Neuromuscular (Tone, Coordination, Reflexes) grossly intact Sensory Vision: Wears Glasses Transfers Sit to Lying (QC): 6 Lying to Sitting/Side of Bed(Q: 6 Sit to Stand (QC): 6 Chair/Zap-dx-Xyahj Xfer(QC): 6 Toilet Transfer (QC): 6 Gait Does the Patient Walk?: Yes Mode of Locomotion: Walk Anticipated Mode of Locomotion: Walk Walk 10 feet (QC): 6 Walk 50 ft with 2 Turns(QC): 6 Walk 150 ft (QC): 6 Distance: 400' Gait Assistive Device: None Comments/Gait Description safe and functional with no deviation Balance Sitting Static: Normal Sitting Dynamic: Normal Standing Static: Normal Standing Dynamic: Normal Assessment/Needs 76 y.o. male,is currently at [facility] with all gross motor skills and does not require skilled therapy intervention. Patient is very emotional/tearful during session due to personal stress. Rehab Potential: Fair PT Plan Treatment/Plan Treatment Plan: Discontinue PT, goals met Treatment Duration: Dec 24, 2021 Frequency: 1 time per week Estimated Hrs Per Day: .25 hour per day Patient and/or Family Agrees t: Yes Time/GCodes Time In: 901 Time Out: 911 Total Billed Treatment Time: 10 Total Billed Treatment 1 visit EVModC 10 min CLEM DUKES PT Dec 24, 2021 10:08
[2021-12-24] MEDS ORDERED: ACETAMINOPHEN 325 MG TABLET ONE (10:53)
[2021-12-24] MEDS: ACETAMINOPHEN 325 MG TABLET PO PRN ×2 (11:11→18:13)
[2021-12-24] MEDS ORDERED: REGADENOSON 0.4 MG/5 ML SYR (LEXISCAN) IV ONE (11:15)
[2021-12-24] MEDS ORDERED: LOSARTAN 50 MG (COZAAR) TAB PO NR (11:18)
--- NOTE | 2021-12-24 11:20 | History & Physical ---
GENE JACKSON 12/24/21 1120: History of Present Illness History of Present Illness Reason for visit/HPI Patient is a 76yo male w/PMH of HTN, AFIB, ARMANDO who presented to ER yesterday with 3 days of worsening weakness, fatigue and decreased appetite. His BP has been running high at home, 190/110 last time he checked. He has been sleeping okay and denies any chest pain. Denies any nausea/vomiting, sweats/chills or syncope. His recently had brain surgery and he has been under a lot of stress lately. Date of Admission Dec 23, 2021 at 21:35 Date Seen by a Provider: Dec 24, 2021 Time Seen by a Provider: 08:15 I consulted on this patient on 12/24/21 11:14 Attending Physician Nova Mohan MD Admitting Physician Deion Feliciano DO Consult Allergies and Home Medications Allergies Coded Allergies: No Known Drug Allergies (Unverified , 10/22/20) Patient Home Medication List Albuterol Sulfate (Albuterol Sulfate) 2.5 Mg/3 Ml Vial.neb, 3 ML NEB Q4 -6H PRN for SHORTNESS OF BREATH, (Reported) Entered as Reported by: ANA GONZALEZ on 10/22/20 1354 Last Action: Held Albuterol Sulfate (Ventolin Hfa) 1 Puff Puff, 2 PUFF INH Q4H PRN for SHORTNESS OF BREATH, (Reported) Entered as Reported by: MELANI FORRESTER on 12/24/21 1003 Last Action: Held Calcium Carbonate/Vitamin D3 (Calcium + Vitamin D Tablet) 1 Each Tablet, 1 EACH PO DAILY, (Reported) Entered as Reported by: MELANI FORRESTER on 12/24/21 0959 Last Action: Held Carvedilol (Carvedilol) 25 Mg Tablet, 25 MG PO BID, (Reported) Entered as Reported by: ANA GONZALEZ on 10/22/20 1354 Last Action: Held Clonazepam (Clonazepam) 0.5 Mg Tablet, 0.25 MG PO DAILY, (Reported) Entered as Reported by: ANA GONZALEZ on 10/22/20 1354 Last Action: Continued Clonazepam (Clonazepam) 0.5 Mg Tablet, 0.5 MG PO HS, (Reported) Entered as Reported by: ANAHI NAVA on 10/23/20925 Last Action: Continued Digoxin (Digoxin) 250 Mcg Tablet, 250 MCG PO HS, (Reported) Entered as Reported by: ANA GONZALEZ on 10/22/201353 Last Action: Held Furosemide (Furosemide) 40 Mg Tablet, 40 MG PO DAILY, (Reported) Entered as Reported by: ANA GONZALEZ on 10/22/201353 Last Action: Held Gabapentin (Neurontin) 300 Mg Capsule, 300 MG PO TID, (Reported) Entered as Reported by: ANAHI NAVA on 10/23/20925 Last Action: Continued Losartan Potassium (Losartan Potassium) 50 Mg Tablet, 50 MG PO DAILY, (Reported) Entered as Reported by: ANA GONZALEZ on 10/22/201353 Last Action: Held Metformin HCl (Metformin HCl ER) 750 Mg Tab.er.24h, 750 MG PO BID, (Reported) Entered as Reported by: ANA GONZALEZ on 10/22/201353 Last Action: Held [place]-3/Dha/Epa/Fish Oil (Fish Oil 500 mg Softgel) 1 Each Capsule, 1 EACH PO DAILY, (Reported) Entered as Reported by: ANAHI NAVA on 10/23/20925 Last Action: Held Pantoprazole Sodium (Pantoprazole Sodium) 40 Mg Tablet.dr, 40 MG PO DAILY, (Reported) Entered as Reported by: ANA GONZALEZ on 10/22/201353 Last Action: Continued Potassium Chloride (Potassium Chloride) 20 Meq Tab.er.prt, 20 MEQ PO DAILY, (Reported) Entered as Reported by: ANA GONZALEZ on 10/22/201353 Last Action: Held Pravastatin Sodium (Pravastatin Sodium) 20 Mg Tablet, 20 MG PO HS, (Reported) Entered as Reported by: ANA GONZALEZ on 10/22/201353 Last Action: Held Vitamin B Complex (B Complex) 1 Each Tablet, 1 EACH PO DAILY, (Reported) Entered as Reported by: MELANI FORRESTER on 12/24/21 09 Last Action: Held Warfarin Sodium (Warfarin Sodium) 5 Mg Tablet, 7.5 MG PO SUN,MON,WED, (Reported) Entered as Reported by: ANA GONZALEZ on 10/22/201353 Last Action: Held Warfarin Sodium (Warfarin Sodium) 5 Mg Tablet, 5 MG PO TU,TAWANA,FRI, (Reported) Entered as Reported by: ANAHI NAVA on 10/23/20925 Last Action: Held Warfarin Sodium (Warfarin Sodium) 5 Mg Tablet, 2.5 MG PO SAT, (Reported) Entered as Reported by: ANAHI NAVA on 10/23/20925 Last Action: Held Discontinued Medications Benzonatate (Tessalon Perle) 100 Mg Capsule, 100 MG PO TID Discontinued Reason: No Longer Taking Prescribed by: REDDY EDWARDS on 10/24/201213 Last Action: Discontinued Calcium Carbonate (Calcium) 600 Mg Tablet, 600 MG PO DAILY, (Reported) Discontinued Reason: Duplicate Order Entered as Reported by: ANAHI NAVA on 10/23/20925 Last Action: Discontinued Citalopram Hydrobromide (Citalopram HBr) 20 Mg Tablet, 10 MG PO BID, (Reported) Discontinued Reason: No Longer Taking Entered as Reported by: ANA GONZALEZ on 10/22/201353 Last Action: Discontinued Prednisone (Prednisone) 20 Mg Tab, 40 MG PO DAILY Discontinued Reason: No Longer Taking Prescribed by: REDDY EDWARDS on 10/24/201213 Last Action: Discontinued Umeclidinium Peacham (Incruse Ellipta) 62.5 Mcg Blst.w.dev, 1 PUFF INH DAILY, (Reported) Discontinued Reason: No Longer Taking Entered as Reported by: ANA GONZALEZ on 10/22/201353 Last Action: Discontinued Vitamin B Complex (Super B-50 Complex) 1 Each Capsule, 1 EACH PO DAILY, (Reported) Discontinued Reason: Duplicate Order Entered as Reported by: ANAHI NAVA on 10/23/20925 Last Action: Discontinued Past Wjdlnwj-Uxjefg-Jlvrfb Hx Patient Social History Tobacco Use?: No Use of E-Cig and/or Vaping dev: No Substance use?: No Alcohol Use?: No Pt feels they are or have been: No Immunizations Up To Date Date of Influenza Vaccine: Aug 14, 2020 First/Initial COVID19 Vaccinat: 2020 Second COVID19 Vaccination Romero: 2020 Tetanus Booster (TDap): Unknown Date of Pneumonia Vaccine: Oct 22, 1996 Current Status Advance Directives: No Communicates: Verbally Primary Language: Lao Preferred Spoken Language: Lao Is interpretation needed?: No Sensory deficits: Vision impairment Implanted or Applied Medical D: None Past Medical History Surgeries: Appendectomy, Tonsillectomy Hypertension Diabetes, Non-Insulin dep Family Medical History Reviewed Nursing Family Hx Colon cancer 19 FATHER Review of Systems Constitutional: No chills, No diaphoresis, No fever; weakness Respiratory: No dyspnea on exertion, No short of breath Cardiovascular: No chest pain, No syncope Gastrointestinal: No abdominal pain, No diarrhea, No nausea, No vomiting Physical Exam Vital Signs Vital Signs - First Documented 12/23/21 12/23/21 18:09 23:56 Temp 36.6 Pulse 63 Resp 20 B/P (MAP) 180/102 (128) Pulse Ox 97 O2 Delivery Room Air FiO2 21 Capillary Refill : Less Than 3 Seconds Height, Weight, BMI Height: '" Weight: lbs. oz. kg; 36.96 BMI Method: General Appearance: Obese HEENT: PERRL/EOMI Neck: Normal Inspection, Supple Respiratory: Lungs Clear, No Accessory Muscle Use Cardiovascular: Bradycardia, Irregularly Irregular Gastrointestinal: Normal Bowel Sounds, Soft Back: Normal Inspection, No CVA Tenderness Extremity: Normal Inspection, No Calf Tenderness, No Pedal Edema Neurologic/Psychiatric: Alert, Oriented x3 Skin: Normal Color Assessment/Plan Assessment and Plan Weakness/Fatigue secondary to bradycardia Hypertension Afib - Head/chest CTA revealed no acute vascular abnormalities in the neck or intracranially. Carotid US revealed no signficant stenosis - Cardiology consulted - Discontinue Digoxin, will check current blood levels - Holding Carvedilol for now - Increasing daily Losartan dosage - Stress test tomorrow morning - PT/OT - Continue regular Warfarin dosage Admission Diagnosis Symptomatic bradycardia NOVA MOHAN MD 12/24/21 1936: History of Present Illness History of Present Illness Time Seen by a Provider: 10:40 Allergies and Home Medications Allergies Coded Allergies: No Known Drug Allergies (Unverified , 10/22/20) Patient Home Medication List Home Medication List Reviewed: Yes Albuterol Sulfate (Albuterol Sulfate) 2.5 Mg/3 Ml Vial.neb, 3 ML NEB Q4 -6H PRN for SHORTNESS OF BREATH, (Reported) Entered as Reported by: ANA GONZALEZ on 10/22/20 9787 Last Action: Held Albuterol Sulfate (Ventolin Hfa) 1 Puff Puff, 2 PUFF INH Q4H PRN for SHORTNESS OF BREATH, (Reported) Entered as Reported by: MELANI FORRESTER on 12/24/21 1003 Last Action: Held Calcium Carbonate/Vitamin D3 (Calcium + Vitamin D Tablet) 1 Each Tablet, 1 EACH PO DAILY, (Reported) Entered as Reported by: MELANI FORRESTER on 12/24/21 0959 Last Action: Held Carvedilol (Carvedilol) 25 Mg Tablet, 25 MG PO BID, (Reported) Entered as Reported by: ANA GONZALEZ on 10/22/201353 Last Action: Held Clonazepam (Clonazepam) 0.5 Mg Tablet, 0.25 MG PO DAILY, (Reported) Entered as Reported by: ANA GONZALEZ on 10/22/201353 Last Action: Continued Clonazepam (Clonazepam) 0.5 Mg Tablet, 0.5 MG PO HS, (Reported) Entered as Reported by: ANAHI NAVA on 10/23/20925 Last Action: Continued Digoxin (Digoxin) 250 Mcg Tablet, 250 MCG PO HS, (Reported) Entered as Reported by: ANA GONZALEZ on 10/22/201353 Last Action: Held Furosemide (Furosemide) 40 Mg Tablet, 40 MG PO DAILY, (Reported) Entered as Reported by: ANA GONZALEZ on 10/22/201353 Last Action: Held Gabapentin (Neurontin) 300 Mg Capsule, 300 MG PO TID, (Reported) Entered as Reported by: ANAHI NAVA on 10/23/20925 Last Action: Continued Losartan Potassium (Losartan Potassium) 50 Mg Tablet, 50 MG PO DAILY, (Reported) Entered as Reported by: ANA GONZALEZ on 10/22/201353 Last Action: Held Metformin HCl (Metformin HCl ER) 750 Mg Tab.er.24h, 750 MG PO BID, (Reported) Entered as Reported by: ANA GONZALEZ on 10/22/201353 Last Action: Held [place]-3/Dha/Epa/Fish Oil (Fish Oil 500 mg Softgel) 1 Each Capsule, 1 EACH PO DAILY, (Reported) Entered as Reported by: ANAHI NAVA on 10/23/20925 Last Action: Held Pantoprazole Sodium (Pantoprazole Sodium) 40 Mg Tablet.dr, 40 MG PO DAILY, (Reported) Entered as Reported by: ANA GONZALEZ on 10/22/201353 Last Action: Continued Potassium Chloride (Potassium Chloride) 20 Meq Tab.er.prt, 20 MEQ PO DAILY, (Reported) Entered as Reported by: ANA GONZALEZ on 10/22/201353 Last Action: Held Pravastatin Sodium (Pravastatin Sodium) 20 Mg Tablet, 20 MG PO HS, (Reported) Entered as Reported by: ANA GONZALEZ on 10/22/201353 Last Action: Held Vitamin B Complex (B Complex) 1 Each Tablet, 1 EACH PO DAILY, (Reported) Entered as Reported by: MELANI FORRESTER on 12/24/21958 Last Action: Held Warfarin Sodium (Warfarin Sodium) 5 Mg Tablet, 7.5 MG PO FRI,FRI,FRI, (Reported) Entered as Reported by: ANA GONZALEZ on 10/22/201353 Last Action: Held Warfarin Sodium (Warfarin Sodium) 5 Mg Tablet, 5 MG PO TU,FRI,FRI, (Reported) Entered as Reported by: ANAHI NAVA on 10/23/20925 Last Action: Held Warfarin Sodium (Warfarin Sodium) 5 Mg Tablet, 2.5 MG PO SAT, (Reported) Entered as Reported by: ANAHI NAVA on 10/23/20925 Last Action: Held Discontinued Medications Benzonatate (Tessalon Perle) 100 Mg Capsule, 100 MG PO TID Discontinued Reason: No Longer Taking Prescribed by: REDDY EDWARDS on 10/24/201213 Last Action: Discontinued Calcium Carbonate (Calcium) 600 Mg Tablet, 600 MG PO DAILY, (Reported) Discontinued Reason: Duplicate Order Entered as Reported by: ANAHI NAVA on 10/23/20925 Last Action: Discontinued Citalopram Hydrobromide (Citalopram HBr) 20 Mg Tablet, 10 MG PO BID, (Reported) Discontinued Reason: No Longer Taking Entered as Reported by: ANA GONZALEZ on 10/22/201353 Last Action: Discontinued Prednisone (Prednisone) 20 Mg Tab, 40 MG PO DAILY Discontinued Reason: No Longer Taking Prescribed by: REDDY EDWARDS on 10/24/201213 Last Action: Discontinued Umeclidinium Peacham (Incruse Ellipta) 62.5 Mcg Blst.w.dev, 1 PUFF INH DAILY, (Reported) Discontinued Reason: No Longer Taking Entered as Reported by: ANA Ruiz CARLOS on 10/22/20 1354 Last Action: Discontinued Vitamin B Complex (Super B-50 Complex) 1 Each Capsule, 1 EACH PO DAILY, (Reported) Discontinued Reason: Duplicate Order Entered as Reported by: ANAHI DUBONZANT on 10/23/20 0963 Last Action: Discontinued Past Cpldodq-Wlscwr-Rvhvpo Hx Past Medical History High Cholesterol, Hypertension Family Medical History Colon cancer 19 FATHER Physical Exam General Appearance: No Apparent Distress, Obese HEENT: PERRL/EOMI, Pharynx Normal Neck: Normal Inspection, Supple Respiratory: Lungs Clear, Normal Breath Sounds, No Respiratory Distress Cardiovascular: Regular Rate, Rhythm, No Edema, No Murmur Gastrointestinal: Normal Bowel Sounds, Non Tender, Soft Extremity: Normal Inspection, Non Tender, No Pedal Edema Neurologic/Psychiatric: Alert, Oriented x3, Normal Mood/Affect Skin: Normal Color, Warm/Dry Assessment/Plan Assessment and Plan Admitted with weakness and bradycardia. Holding digoxin and coreg. Monitor heart rate and symptoms. Cardiology consulted. Planning for stress test tomorrow. Problems: (1) Weakness Status: Acute (2) Bradycardia Status: Acute (3) Hypertension Status: Acute Qualifiers: Qualified Codes: I10 - Essential (primary) hypertension Admission Diagnosis Admission Status: Inpatient Order (span 2 midnights) Reason for Inpatient Admission: Bradycardia Possible intervention Supervisory-Addendum Brief Verification & Attestation Participated in pt care: history, MDM, physical Personally performed: exam, history, MDM, supervision of care Care discussed with: Medical Student Procedures: n/a Results interpretation: Verified all documentation A medical student performed and documented this service in my presence. I revi ewed and verified all information documented by the medical student and made modifications to such information, when appropriate. I personally performed the physical exam and medical decision making. GENE JACKSON Dec 24, 2021 11:20 NOVA MOHAN MD Dec 24, 2021 19:36
--- NOTE | 2021-12-24 11:40 | Occ Therapy Progress Note ---
Therapy Progress Note OT orders received and chart reviewed. OT educated pt on purpose and benefit of OT, he verbalized understanding. Pt reports no concerns with ADLs at this time, he is up in his room independently without AD. Per chart review, pt c/o LUE weakness upon arrival to ED. BUE WFL, shoulder flexion to approx 160 degrees, BUE MMT grossly 5/5. No deficits noted LUE at this time. Pt reports no further concerns with ADLs and UE function, stating he is at PLOF. D/C from OT at this time, as pt is independent with ADLs and functional mobility, and at PLOF. 1, visit 1130 SULEMAN SALMON OT Dec 24, 2021 11:40
--- NOTE | 2021-12-24 11:45 | Consultation-Cardiology ---
HPI-Cardiology Cardiology Consultation Date of Consultation 12/24/21 Date of Admission Time Seen by Provider: 08:15 HPI Patient is a 76 y/o male with history of CHF, afib, HTN, HLP, DM, ARMANDO. Presented to the ER with complaints of generalized weakness for the last 3 days with left arm heaviness. Denies any dizziness or lightheadedness. Denies dyspnea. Reports he has been under increased stress, as his of 52 years recently underwent brain surgery. Patient is tearful when discussing his 's health. Primary tray line worker is Dr. Shafer, reports has routine follow ups, but no recent stress test. Denies any active chest pain at this time. Home Medications & Allergies Allergies: Coded Allergies: No Known Drug Allergies (Unverified , 10/22/20) Home Medication List Reviewed: Yes [id number] Hx Patient Social History Marital Status: Have you traveled recently?: No Alcohol Use?: No Immunizations Up To Date Date of Pneumonia Vaccine: Oct 22, 1996 Date of Influenza Vaccine: Aug 14, 2020 Past Medical History afib, CHF, HTN, HLP, DM, ARMANDO Family Medical History Family History: Colon cancer 19 FATHER Review of Systems-General Review of Systems Constitutional: No chills, No diaphoresis, No fever; malaise, weakness EENTM: see HPI; No blurred vision, No double vision Respiratory: see HPI; No cough, No dyspnea on exertion, No orthopnea, No short of breath Cardiovascular: see HPI; No chest pain, No edema, No Hx of Intervention, No syncope, No vascular heart diseas Gastrointestinal: No abdominal pain, No diarrhea, No nausea, No vomiting Genitourinary: no symptoms reported Musculoskeletal: No back pain; muscle pain, muscle weakness Skin: no symptoms reported All Other Systems Reviewed Negative Unless Noted: Yes Reviewed Test Results Reviewed Test Results Lab Laboratory Tests 12/23/21 18:12: Glucometer 110 12/23/21 18:18: White Blood Count 8.6, Red Blood Count 4.53, Hemoglobin 14.1, Hematocrit 42, Mean Corpuscular Volume 92, Mean Corpuscular Hemoglobin 31, Mean Corpuscular Hemoglobin Concent 34, Red Cell Distribution Width 12.8, Platelet Count 243, Mean Platelet Volume 10.3, Immature Granulocyte % (Auto) 0, Neutrophils (%) (Auto) 62, Lymphocytes (%) (Auto) 22, Monocytes (%) (Auto) 11, Eosinophils (%) (Auto) 4, Basophils (%) (Auto) 1, Neutrophils # (Auto) 5.4, Lymphocytes # (Auto) 1.9, Monocytes # (Auto) 1.0, Eosinophils # (Auto) 0.3, Basophils # (Auto) 0.0, Immature Granulocyte # (Auto) 0.0, Prothrombin Time 25.0H, INR Comment 2.2H, Activated Partial Thromboplast Time 45H, D-Dimer 0.05, Sodium Level 134L, Potassium Level 3.5L, Chloride Level 98, Carbon Dioxide Level 23, Anion Gap 13, Blood Urea Nitrogen 14, Creatinine 1.09, Estimat Glomerular Filtration Rate 71, BUN/Creatinine Ratio 13, Glucose Level 116H, Calcium Level 9.6, Corrected C alcium 9.4, Total Bilirubin 0.5, Aspartate Amino Transf (AST/SGOT) 17, Alanine Aminotransferase (ALT/SGPT) 23, Alkaline Phosphatase 40, Troponin I < 0.028, Total Protein 6.5, Albumin 4.2 12/23/21 18:35: Urine Color YELLOW, Urine Clarity CLEAR, Urine pH 7.0, Urine Specific [place] <=1.005, Urine Protein NEGATIVE, Urine Glucose (UA) NEGATIVE, Urine Ketones NEGATIVE, Urine Nitrite NEGATIVE, Urine Bilirubin NEGATIVE, Urine Urobilinogen 0.2, Urine Leukocyte Esterase NEGATIVE, Urine RBC (Auto) 1+H, Urine RBC RARE, Urine WBC RARE, Urine Squamous Epithelial Cells NONE, Urine Renal Epithelial Cells NONE, Urine Crystals NONE, Urine Bacteria NEGATIVE, Urine Casts NONE, Urine Mucus NEGATIVE, Urine Culture Indicated NO 12/23/21 20:10: Troponin I < 0.028 12/24/21 05:19: Glucometer 89 12/24/21 05:38: White Blood Count 6.8, Red Blood Count 4.25L, Hemoglobin 13.3, Hematocrit 39L, Mean Corpuscular Volume 93, Mean Corpuscular Hemoglobin 31, Mean Corpuscular Hemoglobin Concent 34, Red Cell Distribution Width 12.8, Platelet Count 210, Mean Platelet Volume 10.5, Immature Granulocyte % (Auto) 0, Neutrophils (%) (Auto) 62, Lymphocytes (%) (Auto) 20, Monocytes (%) (Auto) 13H, Eosinophils (%) (Auto) 4, Basophils (%) (Auto) 1, Neutrophils # (Auto) 4.2, Lymphocytes # (Auto) 1.4, Monocytes # (Auto) 0.9, Eosinophils # (Auto) 0.3, Basophils # (Auto) 0.0, Immature Granulocyte # (Auto) 0.0, Sodium Level 140, Potassium Level 3.7, Chloride Level 106, Carbon Dioxide Level 23, Anion Gap 11, Blood Urea Nitrogen 13, Creatinine 0.91, Estimat Glomerular Filtration Rate 88, BUN/Creatinine Ratio 14, Glucose Level 94, Calcium Level 9.3, Triglycerides Level 97, Cholesterol Level 107, LDL Cholesterol Direct 62, VLDL Cholesterol 19, HDL Cholesterol 30L 12/24/21 10:32: Glucometer 128H ECG Impression ECG Initial ECG Impression: Atrial Fibrillation Physical Exam Physical Exam Vital Signs Vital Signs - First Documented 12/23/21 12/23/21 18:09 23:56 Temp 36.6 Pulse 63 Resp 20 B/P (MAP) 180/102 (128) Pulse Ox 97 O2 Delivery Room Air FiO2 21 Capillary Refill : Less Than 3 Seconds Height, Weight, BMI Height: '" Weight: lbs. oz. kg; 36.96 BMI Method: General Appearance: No Apparent Distress, Anxious, Obese HEENT: PERRL/EOMI Neck: Normal Inspection, Supple Respiratory: Lungs Clear, No Accessory Muscle Use Cardiovascular: Bradycardia, Irregularly Irregular Gastrointestinal: Normal Bowel Sounds, Soft Back: Normal Inspection, No CVA Tenderness Extremity: Normal Inspection, No Calf Tenderness, No Pedal Edema Neurologic/Psychiatric: Alert, Oriented x3 Skin: Normal Color A/P-Cardiology Admission Diagnosis Afib Chest pain CHF Generalized weakness. Assessment/Plan Atrial fibrillation, patient reports hx of afib, maintained on Coreg, digoxin, Coumadin. Currently slow afib with HR in the 50's. I will d/c digoxin, hold Coreg at this time, continue coumadin and continue to monitor. Chest pain, presenting as left arm aching/heaviness. EKG showing no acute ST changes, troponin negative. Has multiple risk factors for underlying CAD, no recent work up, planning for stress test in the morning. Generalized weakness and malaise, reports has been under increased stress recently d/t 's recent brain surgery. CHF, follows with Dr. Shafer. Reports recent echo done. HTN, elevated this morning, I am holding Coreg d/t bradycardia, will increase losartan to 100mg daily, plan to resume Coreg at lower dose. Continue to monitor. HLP, maintained on statin. DM, management per medical services Obesity ARMANDO, maintained on CPAP. Anxiety/depression, management per medical services. Thank you for allowing us to participate in the management of Mr. Acevedo. This is Kay Landis PA-C, as a scribe for Dr. Kirby. Patient was seen and evaluated with Kay, I interviewed and examined the patient and discussed the management plan and agree with the scribed note. Permanent atrial fibrillation, bradycardia, DC digoxin, evaluate dig level, I am holding Coreg for now, planning to evaluate stress test in the morning Continue Coumadin and monitor INR Evaluate 2D echo Try to obtain copy of his records KAY SULLIVAN Dec 24, 2021 11:45 CASTRO KIRBY MD Dec 24, 2021 12:08
[2021-12-24] MEDS: CATHETER FLUSH 10 ML SYR IVP SCH ×2 (14:09→21:36)
[2021-12-24] MEDS ORDERED: cloNIDine 0.1 MG (CATAPRES) TAB PO NR (14:15)
[2021-12-24] MEDS: ISOSORBIDE MONONITRATE 30 MG (IMDUR) TAB PO SCH (17:10)
--- NOTE | 2021-12-24 18:14 | Tele-ICU Progress Note ---
Progress Note Video assessment done , Hemodynamically stable Available charting reviewed NO TELE-ICU CONSULT REQUESTED CONTINUE TO MONITOR PER USUAL TELE-ICU PROTOCOL No need for Tele-ICU interventions Plans as delineated by bedside physicians / consultants Focused Exam Height, Weight, BMI Height: '" Weight: lbs. oz. kg; 36.96 BMI Method: ANGELIC MORRELL MD Dec 24, 2021 18:14
[2021-12-24] MEDS ORDERED: ATROPINE INJECTION 1 MG/10 ML SYR (ABBOTT) IV PRN (18:45)
[2021-12-24] MEDS ORDERED: clonazePAM 0.5 MG (KlonoPIN) TAB ONE (20:53)
[2021-12-24] MEDS ORDERED: cloNIDine 0.1 MG (CATAPRES) TAB PO SCH (21:00)
[2021-12-24] MEDS: clonazePAM 0.5 MG (KlonoPIN) TAB PO SCH (21:35)
[2021-12-24] MEDS: GABAPENTIN 300 MG (NEURONTIN) CAP PO SCH (21:35)
[2021-12-24] MEDS ORDERED: HYDROcodone/APAP 5 MG/325 MG (LORTAB) TAB ONE (21:47)
[2021-12-24] MEDS: HYDROcodone/APAP 5 MG/325 MG (LORTAB) TAB PO PRN (21:48)
[2021-12-25] VITALS (24 sets, daily range): BP systolic 111–178; BP diastolic 40–96
[2021-12-25] MEDS: HYDROcodone/APAP 5 MG/325 MG (LORTAB) TAB PO PRN ×2 (03:25→21:17)
[2021-12-25 05:01] LABS: BASOPHILS % (AUTO) 1 % (0-10); EOSINOPHILS # (AUTO) 0.3 10^3/uL (0.0-0.3); EOSINOPHILS % (AUTO) 4 % (0-10); HEMATOCRIT 38 % (40-54); HEMOGLOBIN 12.8 g/dL (13.3-17.7); LYMPHOCYTES # (AUTO) 1.6 10^3/uL (1.0-4.0); LYMPHOCYTES % (AUTO) 21 % (12-44); MEAN CORPUSCULAR HEMOGLOBIN 32 pg (25-34); MEAN CORPUSCULAR HGB CONC 34 g/dL (32-36); MEAN CORPUSCULAR VOLUME 94 fL (80-99); MEAN PLATELET VOLUME 10.5 fL (9.0-12.2); MONOCYTES % (AUTO) 12 % (0-12); NEUTROPHILS # (AUTO) 4.8 10^3/uL (1.8-7.8); NEUTROPHILS % (AUTO) 62 % (42-75); PLATELET COUNT 212 10^3/uL (130-400); WHITE BLOOD COUNT 7.8 10^3/uL (4.3-11.0)
[2021-12-25 05:21] LABS: CREATININE SERUM 0.96 MG/DL (0.60-1.30); MAGNESIUM 2.1 MG/DL (1.6-2.4); PHOSPHORUS 4.1 MG/DL (2.3-4.7); POTASSIUM 3.4 MMOL/L (3.6-5.0)
[2021-12-25] MEDS: NITRO DRIP 25000 MCG/D5W 250 ML IV SCH ×2 (06:10→18:58)
[2021-12-25] MEDS: POTASSIUM CL 10MEQ/50ML IVPB 50 ML IV SCH (06:10)
[2021-12-25] MEDS: CATHETER FLUSH 10 ML SYR IVP SCH ×3 (06:11→20:23)
[2021-12-25] MEDS: MAGNESIUM 1 GM/100 ML IVPB 100 ML IV SCH (06:11)
[2021-12-25] MEDS: KCL 20 MEQ TAB (K-DUR) PO SCH (06:11)
[2021-12-25] MEDS ORDERED: REGADENOSON 0.4 MG/5 ML SYR (LEXISCAN) IV ONE ×2 (08:01→08:02)
--- NOTE | 2021-12-25 08:20 | Cardiology Progress Note ---
Subjective Date Seen by Provider: Dec 25, 2021 Time Seen by Provider: 08:16 Subjective/Events-last exam Patient is laying down in bed, feeling better. Heart rate is still having episodes of bradycardia but overall no new complaint Review of Systems General: No Chills, No Night Sweats; Fatigue; No Malaise, No Appetite, No Other HEENT: No Head Aches, No Visual Changes, No Eye Pain, No Ear Pain, No Dysphasia, No Sinus Congestion, No Post Nasal Drip, No Sore Throat, No Other Pulmonary: Dyspnea; No Cough, No Pleuritic Chest Pain, No Other Cardiovascular: No: Chest Pain, Palpitations, Orthopnea, Paroxysmal Noc. Dyspnea, Edema, Lt Headedness, Other Objective-Cardiology Exam Last Set of Vital Signs Vital Signs 12/25/21 12/25/21 12/25/21 12/25/21 03:05 04:00 06:00 08:02 Temp 36.4 Pulse 69 Resp 13 B/P (MAP) 178/92 (120) Pulse Ox 97 O2 Delivery NIV CPAP FiO2 21 I&O Intake and Output 12/25/21 00:00 Intake Total 1310 ml Output Total 400 ml Balance 910 ml Intake Oral 1310 ml Output Urine Total 400 ml # Voids 9 # Bowel Movements 1 General: Alert, Oriented X3, Cooperative HEENT: Atraumatic, PERRLA Neck: Supple, No JVD, No Thyromegaly Lungs: Clear to Auscultation, Normal Air Movement Heart: Normal S1, Normal S2, No Murmurs, Other (Atrial fibrillation, bradycardia) Abdomen: Normal Bowel Sounds, Soft, No Tenderness, No Hepatosplenomegaly, No Masses Extremities: No Clubbing, No Cyanosis, No Edema, Normal Pulses, No Tenderness/Swelling Skin: No Rashes, No Breakdown, No Significant Lesion Neuro: Normal Gait, Normal Speech, Strength at 5/5 X4 Ext, Normal Tone, Sensation Intact Psych/Mental Status: Mental Status NL, Mood NL Results Lab Laboratory Tests 12/25/21 04:40 A/P-Cardiology Admission Diagnosis Afib Chest pain CHF Generalized weakness. Assessment/Plan Persistent atrial fibrillation, currently bradycardic. I DC digoxin, Coreg is on hold. Maintained on Coumadin, continue to monitor INR and monitor heart rate. Chest pain, presenting as left arm aching/heaviness. EKG showing no acute ST changes, troponin negative. Has multiple risk factors for underlying CAD, no recent work up, scheduled for stress test today. Hypertensive urgency, labile blood pressure associated with episodes of headache and chest pain. I stopped Coreg due to bradycardia, restart losartan at 100 mg daily and will consider the use clonidine Generalized weakness and malaise, reports has been under increased stress recently d/t 's recent brain surgery. CHF, follows with Dr. Shafer. Reports recent echo done. HLP, maintained on statin. DM, management per medical services Obesity ARMANDO, maintained on CPAP. Anxiety/depression, management per medical services. CASTRO HUMMEL MD Dec 25, 2021 08:20
--- NOTE | 2021-12-25 08:56 | Tele-ICU Progress Note ---
Subjective Date Seen by a Provider: Dec 25, 2021 Time Seen by a Provider: 07:25 Subjective/Events-last exam This virtual visit was conducted using real time audio/video. Thank you for asking us to see this patient for htn/AMS Recent events: BP better: 150/90. To have myocardial perfusion study. Possible cath. PE: VSS. O2 sat 95% on RA. HEENT: No obvious masses, adenopathy or JVD. Chest: clear to auscultation. CV: RRR S1 S2 No murmur or added sounds. Abd: Non-tender. Bowel sounds Y. : Unremarkable. Lambert N. MANAGER LAN/psychiatric: Grossly intact. No obvious focal findings. Extremities:No edema. Capillary refill < 3 seconds. Skin: unremarkable. Results: Decreased K 3.4, Hb 12.8. CXR: cardiomeg.. Available chart/ vitals / labs / images reviewed. Video assessment done using teleICU camera, rest of exam as per RN. A/P: Critical Care: critically ill patient. Cont. NTG, Imdur, Clonaz., Neuront., PPI, SCDs. Ambulate sa shara. Replace K Discussed with SIMON Barroso. Asked RN to reach out to eICU if any questions or concerns later. Time spent with patient/coordination of care with other health professionals (mins): 15 Sepsis Event Evaluation Height, Weight, BMI Height: '" Weight: lbs. oz. kg; 36.96 BMI Method: Exam Exam Patient acknowledged, consented, and participated in this virtual visit which was conducted using real time audio/video Vital Signs Date Time Temp Pulse Resp B/P (MAP) Pulse Ox O2 Delivery O2 Flow Rate FiO2 12/25/21 08:02 69 178/92 (120) 97 12/25/21 06:10 46 126/60 12/25/21 06:00 55 13 153/73 (99) 97 NIV CPAP 12/25/21 05:00 40 11 146/72 (96) 92 NIV CPAP 12/25/21 04:00 46 14 126/60 (82) 90 NIV CPAP 12/25/21 04:00 NIV CPAP 21 12/25/21 03:30 71 11 135/83 (100) 93 NIV CPAP 12/25/21 03:05 36.4 NIV CPAP 12/25/21 02:00 42 13 111/58 (75) 93 NIV CPAP 12/25/21 01:00 39 14 113/65 (81) 93 NIV CPAP 12/25/21 01:00 39 12/25/21 00:00 NIV CPAP 21 12/25/21 00:00 38 13 123/69 (87) 93 NIV CPAP 12/24/21 23:00 48 13 121/61 (81) 92 NIV CPAP 12/24/21 22:44 36.2 NIV CPAP 12/24/21 22:30 45 14 121/55 (77) 92 Room Air 12/24/21 22:00 65 14 101/90 (94) 94 Room Air 12/24/21 21:00 49 14 141/78 (99) 96 Room Air 12/24/21 20:00 Room Air 12/24/21 20:00 48 16 130/67 (88) 97 Room Air 12/24/21 19:30 41 25 147/66 (93) 95 Room Air 12/24/21 19:00 47 12/24/21 19:00 47 16 113/73 (86) 95 Room Air 12/24/21 19:00 36.4 Room Air 12/24/21 18:49 118/74 (89) 172/88 (116) 131/71 (91) 12/24/21 18:00 58 29 173/103 (126) 98 Room Air 12/24/21 17:00 53 18 190/104 (132) 97 Room Air 12/24/21 16:09 36.1 12/24/21 16:00 67 30 181/91 (121) 90 Room Air 12/24/21 15:40 100 Room Air 12/24/21 15:00 53 16 153/81 (105) 92 Room Air 12/24/21 13:55 78 187/96 (126) 12/24/21 13:00 70 12/24/21 12:06 36.4 55 20 178/69 (105) 96 Room Air I & O 12/25/21 07:00 Intake Total 1010 ml Output Total 900 ml Balance 110 ml Height & Weight Height: '" Weight: lbs. oz. kg; 36.96 BMI Method: General Appearance: No Apparent Distress, Obese HEENT: PERRL/EOMI, Pharynx Normal Neck: Normal Inspection, Supple Respiratory: Lungs Clear, Normal Breath Sounds, No Respiratory Distress Cardiovascular: Regular Rate, Rhythm, No Edema, No Murmur Capillary Refill: Less Than 3 Seconds Gastrointestinal: non tender, soft Extremity: Normal Inspection, Non Tender, No Pedal Edema Neurologic/Psychiatric: Alert, Oriented x3, Normal Mood/Affect Skin: Normal Color, Warm/Dry Results Lab Laboratory Tests 12/23/21 18:18 12/24/21 05:38 12/25/21 04:40 Assessment/Plan Assessment/Plan See free text. Critical Care: Critically Ill Patient GUERLINE LACEY MD Dec 25, 2021 08:56
[2021-12-25] MEDS ORDERED: KCL 20 MEQ TAB (K-DUR) PO NR (09:00)
[2021-12-25] MEDS ORDERED: LOSARTAN 50 MG (COZAAR) TAB PO SCH (09:00)
[2021-12-25] MEDS: clonazePAM 0.5 MG (KlonoPIN) TAB PO SCH ×2 (09:04→20:22)
[2021-12-25] MEDS: LOSARTAN 100 MG (COZAAR) TABLET PO SCH (09:04)
[2021-12-25] MEDS: PANTOPRAZOLE 40 MG (PROTONIX) TAB PO SCH (09:04)
[2021-12-25] MEDS: GABAPENTIN 300 MG (NEURONTIN) CAP PO SCH ×3 (09:04→20:22)
[2021-12-25] MEDS: ISOSORBIDE MONONITRATE 30 MG (IMDUR) TAB PO SCH (09:05)
--- NOTE | 2021-12-25 09:44 | Cardiology Stress Test Report ---
Stress Test Report Date of Procedure/Referring: Date of Procedure: Dec 25, 2021 PCP Josephine Rodríguez MD Admitting Physician Deion Feliciano DO Indications: CP Baseline Blood Pressure: Blood Pressure Systolic: 178 Blood Pressure Diastolic: 92 Baseline Vitals Vital Signs Date Time Temp Pulse Resp B/P (MAP) Pulse Ox O2 Delivery O2 Flow Rate FiO2 12/23/21 18:09 36.6 63 20 180/102 (128) 97 Room Air 12/23/21 23:56 21 Baseline EKG: Baseline EKG: a fib Summary After explaining the procedure to the patient, he signed a consent and then brought to the stress nuclear laboratory. Patient received 0.4 mg Lexiscan for stress test, ECG, heart rate and blood pressure were monitored continuously. Resting and stress dose of radio tracer were injected, imaging was acquired and reviewed in short axis, horizontal long axis and vertical long axis views. TID: 1.09 SSS: 0 SDS: 0 EF: 68 1. Patient tolerated Lexiscan well 2. Baseline atrial fibrillation persisted during test 3. Diaphragmatic attenuation with no significant ischemia or infarction on SPECT images 4. Normal left ventricular size, EF 68%, gated images are unreliable due to atrial fibrillation CASTRO HUMMEL MD Dec 25, 2021 09:44
--- NOTE | 2021-12-25 10:59 | Progress Note ---
Subjective Subjective Date Seen by Provider: Dec 25, 2021 Time Seen by Provider: 08:30 Patient reports feeling better this morning with less weakness and no chest pain. He had a stress test this morning and is a little bit tired now. Denies any shortness of breath, pain, nausea/vomiting or sweats/chills. Review of Systems General: No Chills; Fatigue Pulmonary: Dyspnea Cardiovascular: No: Chest Pain Gastrointestinal: No: Nausea, Vomiting All Other Systems Reviewed All Other Systems Reviewed: Yes Objective Exam Vital Signs Vital Signs Date Time Temp Pulse Resp B/P (MAP) Pulse Ox O2 Delivery O2 Flow Rate FiO2 12/25/21 09:00 64 14 155/82 (106) 98 Room Air 12/25/21 08:02 69 178/92 (120) 97 12/25/21 08:00 Room Air 12/25/21 08:00 61 27 172/85 (114) 97 Room Air 12/25/21 07:00 57 10 97 Room Air 12/25/21 07:00 57 12/25/21 06:10 46 126/60 12/25/21 06:00 55 13 153/73 (99) 97 NIV CPAP 12/25/21 05:00 40 11 146/72 (96) 92 NIV CPAP 12/25/21 04:00 46 14 126/60 (82) 90 NIV CPAP 12/25/21 04:00 NIV CPAP 12/25/21 03:30 71 11 135/83 (100) 93 NIV CPAP 12/25/21 03:05 36.4 NIV CPAP 12/25/21 02:00 42 13 111/58 (75) 93 NIV CPAP 12/25/21 01:00 39 14 113/65 (81) 93 NIV CPAP 12/25/21 01:00 39 12/25/21 00:00 NIV CPAP 21 12/25/21 00:00 38 13 123/69 (87) 93 NIV CPAP 12/24/21 23:00 48 13 121/61 (81) 92 NIV CPAP 12/24/21 22:44 36.2 NIV CPAP 12/24/21 22:30 45 14 121/55 (77) 92 Room Air 12/24/21 22:00 65 14 101/90 (94) 94 Room Air 12/24/21 21:00 49 14 141/78 (99) 96 Room Air 12/24/21 20:00 Room Air 12/24/21 20:00 48 16 130/67 (88) 97 Room Air 12/24/21 19:30 41 25 147/66 (93) 95 Room Air 12/24/21 19:00 47 12/24/21 19:00 47 16 113/73 (86) 95 Room Air 12/24/21 19:00 36.4 Room Air 12/24/21 18:49 118/74 (89) 172/88 (116) 131/71 (91) 12/24/21 18:00 58 29 173/103 (126) 98 Room Air 12/24/21 17:00 53 18 190/104 (132) 97 Room Air 12/24/21 16:09 36.1 12/24/21 16:00 67 30 181/91 (121) 90 Room Air 12/24/21 15:40 100 Room Air 12/24/21 15:00 53 16 153/81 (105) 92 Room Air 12/24/21 13:55 78 187/96 (126) 12/24/21 13:00 70 12/24/21 12:06 36.4 55 20 178/69 (105) 96 Room Air I & O 12/25/21 07:00 Intake Total 1010 ml Output Total 900 ml Balance 110 ml General Appearance: No Apparent Distress, Obese HEENT: PERRL/EOMI, Pharynx Normal Neck: Normal Inspection, Supple Respiratory: Lungs Clear, Normal Breath Sounds, No Respiratory Distress Cardiovascular: No Edema, Bradycardia Gastrointestinal: Normal Bowel Sounds, Non Tender, Soft Back: Normal Inspection Extremity: Normal Inspection, Non Tender, No Pedal Edema Neurologic/Psychiatric: Alert, Oriented x3, Normal Mood/Affect Skin: Normal Color Results Lab Laboratory Tests 12/24/21 11:43: Digoxin Level 0.61L 12/24/21 15:26: Glucometer 122H 12/25/21 04:40: White Blood Count 7.8, Red Blood Count 4.03L, Hemoglobin 12.8L, Hematocrit 38L, Mean Corpuscular Volume 94, Mean Corpuscular Hemoglobin 32, Mean Corpuscular Hem oglobin Concent 34, Red Cell Distribution Width 13.2, Platelet Count 212, Mean Platelet Volume 10.5, Immature Granulocyte % (Auto) 0, Neutrophils (%) (Auto) 62, Lymphocytes (%) (Auto) 21, Monocytes (%) (Auto) 12, Eosinophils (%) (Auto) 4, Basophils (%) (Auto) 1, Neutrophils # (Auto) 4.8, Lymphocytes # (Auto) 1.6, Monocytes # (Auto) 1.0, Eosinophils # (Auto) 0.3, Basophils # (Auto) 0.0, Immature Granulocyte # (Auto) 0.0, Sodium Level 141, Potassium Level 3.4L, Chloride Level 107, Carbon Dioxide Level 22, Anion Gap 12, Blood Urea Nitrogen 13, Creatinine 0.96, Estimat Glomerular Filtration Rate 82, BUN/Creatinine Ratio 14, Glucose Level 113H, Calcium Level 9.0, Phosphorus Level 4.1, Magnesium Level 2.1 12/25/21 09:32: Glucometer 158H Assessment/Plan Assessment/Plan Admission Dx Symptomatic bradycardia Assessment and Plan Symptomatic bradycardia Hypertension Afib - Head/chest CTA revealed no acute vascular abnormalities in the neck or intracranially. Carotid US revealed no signficant stenosis - Cardiology on board, stress test today was normal. Plan on observing patient at least one more day due to persistent bradycardia - Discontinue Digoxin - Holding Carvedilol for now - Increasing daily Losartan dosage - PT/OT - Continue regular Warfarin dosage Problems: (1) Bradycardia (2) Weakness (3) Hypertension Qualifiers: Qualified Codes: I10 - Essential (primary) hypertension Admission Dx Symptomatic bradycardia Clinical Quality Measures Admission Status Admission Dx Symptomatic bradycardia Supervisory-Addendum Brief Verification & Attestation Participated in pt care: history, MDM, physical Personally performed: exam, history, MDM, supervision of care Care discussed with: Medical Student Procedures: n/a Results interpretation: Verified all documentation A medical student performed and documented this service in my presence. I reviewed and verified all information documented by the medical student and made modifications to such information, when appropriate. I personally performed the physical exam and medical decision making. GENE JACKSON Dec 25, 2021 10:59 NOVA MOHAN MD Dec 25, 2021 19:17
[2021-12-25] MEDS: ACETAMINOPHEN 325 MG TABLET PO PRN ×2 (12:52→20:23)
[2021-12-25] MEDS ORDERED: warFARin 5 MG (COUMADIN) TAB PO SCH (22:10)
[2021-12-26] VITALS (14 sets, daily range): BP systolic 123–170; BP diastolic 61–100
[2021-12-26] MEDS: MAGNESIUM 1 GM/100 ML IVPB 100 ML IV SCH (01:47)
[2021-12-26] MEDS: KCL 20 MEQ TAB (K-DUR) PO SCH (01:47)
[2021-12-26] MEDS: POTASSIUM CL 10MEQ/50ML IVPB 50 ML IV SCH (01:47)
[2021-12-26 05:06] LABS: POTASSIUM 3.9 MMOL/L (3.6-5.0)
[2021-12-26 05:12] LABS: CREATININE SERUM 0.99 MG/DL (0.60-1.30)
[2021-12-26 05:14] LABS: MAGNESIUM 1.9 MG/DL (1.6-2.4)
[2021-12-26] MEDS: ISOSORBIDE MONONITRATE 30 MG (IMDUR) TAB PO SCH (08:18)
[2021-12-26] MEDS: LOSARTAN 100 MG (COZAAR) TABLET PO SCH (08:18)
[2021-12-26] MEDS: clonazePAM 0.5 MG (KlonoPIN) TAB PO SCH (08:18)
[2021-12-26] MEDS: GABAPENTIN 300 MG (NEURONTIN) CAP PO SCH ×2 (08:19→13:26)
[2021-12-26] MEDS: PANTOPRAZOLE 40 MG (PROTONIX) TAB PO SCH (08:19)
[2021-12-26] MEDS: CATHETER FLUSH 10 ML SYR IVP SCH (08:20)
[2021-12-26] MEDS ORDERED: LOSA50TA63 PO (11:03)
[2021-12-26] MEDS: HYDROcodone/APAP 5 MG/325 MG (LORTAB) TAB PO PRN (11:06)
--- NOTE | 2021-12-26 15:04 | Discharge Summary ---
GENE JACKSON 12/26/21 1504: Diagnosis/Chief Complaint Date of Admission Dec 23, 2021 at 21:35 Date of Discharge Dec 26, 2021 at 14:43 Discharge Date: Dec 26, 2021 Admission Diagnosis Admission Diagnosis Bradycardia Weakness HTN Discharge Diagnosis Bradycardia Weakness HTN Discharge Summary Hospital Course Hospital Course Jose is a 76yo male w/PMH of HTN, Afib and ARMANDO who presented to ER on 12/23 with primary complaint of weakness and fatigue that had been progressing over 2-3 days. On arrival he was anxious w/elevated BP and HR in low 60s. Cardiology was consulted, cardiac w/u including stress test was normal with no signs of ischemia or infarction. His heart rate was in the 40s throughout the day on 12/24. Patients Digoxin and Coreg were held and heart rate was stabilized above 60 by the afternoon of 12/25. His weakness has since improved. Digoxin was discontinued, Coreg will be restarted at a lower dose and Losartan was increased to 100mg daily. He was medically stable on discharge with normal heart rate and improving strength. Labs Laboratory Tests 12/23/21 18:12: 12/23/21 18:18: Prothrombin Time 25.0H, INR Comment 2.2H, Activated Partial Thromboplast Time 45H, Sodium Level 134L, Potassium Level 3.5L, Glucose Level 116H 12/23/21 18:35: Urine RBC (Auto) 1+H 12/23/21 20:10: 12/24/21 05:19: 12/24/21 05:38: Red Blood Count 4.25L, Hematocrit 39L, Monocytes (%) (Auto) 13H, HDL Cholesterol 30L 12/24/21 10:32: Glucometer 128H 12/24/21 11:43: Digoxin Level 0.61L 12/24/21 15:26: Glucometer 122H 12/25/21 04:40: Red Blood Count 4.03L, Hemoglobin 12.8L, Hematocrit 38L, Potassium Level 3.4L, Glucose Level 113H 12/25/21 09:32: Glucometer 158H 12/25/21 14:54: Glucometer 111H 12/25/21 19:55: Glucometer 118H 12/26/21 04:50: Chloride Level 109H 12/26/21 09:27: Active Scripts Active Losartan Potassium 50 Mg Tablet 100 Mg PO DAILY 30 Days Reported Ventolin Hfa (Albuterol Sulfate) 1 Puff Puff 2 Puff INH Q4H PRN Calcium + Vitamin D Tablet (Calcium Carbonate/Vitamin D3) 1 Each Tablet 1 Each PO DAILY B Complex (Vitamin B Complex) 1 Each Tablet 1 Each PO DAILY Fish Oil 500 mg Softgel ([place]-3/Dha/Epa/Fish Oil) 1 Each Capsule 1 Each PO DAILY Warfarin Sodium 5 Mg Tablet 2.5 Mg PO SAT TAKES 1 & (5MG) TABS ON SUN,FRI &FRI TAKES 1 TAB (5MG) ON , & FRI TAKES (5MG) TAB ON SAT Warfarin Sodium 5 Mg Tablet 5 Mg PO ,FRI,FRI TAKES 1 & (5MG) TABS ON SUN,FRI &FRI TAKES 1 TAB (5MG) ON , & FRI TAKES (5MG) TAB ON SAT Clonazepam 0.5 Mg Tablet 0.5 Mg PO HS Neurontin (Gabapentin) 300 Mg Capsule 300 Mg PO TID Pravastatin Sodium 20 Mg Tablet 20 Mg PO HS Warfarin Sodium 5 Mg Tablet 7.5 Mg PO FRI,FRI,FRI TAKES 1 & (5MG) TABS ON FRI,FRI &FRI TAKES 1 TAB (5MG) ON , & FRI TAKES (5MG) TAB ON SAT Clonazepam 0.5 Mg Tablet 0.25 Mg PO DAILY TAKE (0.5MG) TABLET Potassium Chloride 20 Meq Tab.er.prt 20 Meq PO DAILY Metformin HCl ER (Metformin HCl) 750 Mg Tab.er.24h 750 Mg PO BID Furosemide 40 Mg Tablet 40 Mg PO DAILY Albuterol Sulfate 2.5 Mg/3 Ml Vial.neb 3 Ml NEB Q4 -6H PRN Pantoprazole Sodium 40 Mg Tablet.dr 40 Mg PO DAILY Procedures None. Discharge Physical Examination Allergies: Coded Allergies: No Known Drug Allergies (Unverified , 10/22/20) Vitals & I&Os Vital Signs Date Time Temp Pulse Resp B/P (MAP) Pulse Ox O2 Delivery O2 Flow Rate FiO2 12/26/21 13:00 86 19 167/84 (111) 90 12/26/21 12:00 Room Air 12/26/21 11:28 36.4 12/25/21 04:00 21 General Appearance: Alert, Oriented X3, No Acute Distress HEENT: PERRLA, EOMI Cardiovascular: Regular Rate, No Murmurs Abdominal: Normal Bowel Sounds, Soft Extremities: No Edema, Normal Pulses Neuro: Normal Speech, Sensation Intact Psych/Mental Status: Mental Status NL Discharge Home Medications Reviewed and agree with Discharge Medication list on patient's Discharge Instruction sheet Instructions to Patient/Family Please see electronic discharge instructions given to patient. NOVA MOHAN MD 12/26/212035: Diagnosis/Chief Complaint Discharge Diagnosis Symptomatic bradycardia due to adverse effects of medication Discharge Summary Hospital Course Hospital Course Mr. Acevedo presented with weakness and was admitted with symptomatic bradycardia. Digoxin and Coreg were held and then discontinued. His Losartan was increased due to hypertension. He underwent a cardiac stress test which was negative. His weakness and bradycardia improved. He should follow up with his PCP and Digital Product Manager. Discharge Physical Examination Allergies: Coded Allergies: No Known Drug Allergies (Unverified , 10/22/20) Supervisory-Addendum Brief Verification & Attestation Participated in pt care: history, MDM, physical Personally performed: exam, history, MDM, supervision of care Care discussed with: Medical Student Procedures: n/a Results interpretation: Verified all documentation A medical student performed and documented this service in my presence. I reviewed and verified all information documented by the medical student and made modifications to such information, when appropriate. I personally performed the physical exam and medical decision making. GENE JACKSON Dec 26, 2021 15:04 NOVA MOHAN MD Dec 26, 2021 20:36
[2021-12-26] MEDS ORDERED: warFARin 7.5 MG (COUMADIN) TAB PO SCH (18:00)
--- NOTE | 2021-12-27 12:12 | Physician Query Clarification ---
PQ-CHF Specificity Admission Date: Dec 23, 2021 at 21:35 Discharge Date: Dec 26, 2021 at 14:43 Dr. Kirby, The medical record reflects the following clinical scenario: History/Risk Factors: lt arm weakness, bradycardia, hypertensive urgency, HTN w/CHF Clinical Findings: 2D echo - 55-60%, grade 2 diastolic dysfunction Treatment: PO Cozaar Question: Can you further specify the acuity &/or type of CHF per the clinical indicators above? Please document a response in the Progress Notes or Discharge Summary. 1. Acuity: Acute, Chronic or Acute on Chronic 2. Type: Systolic, Diastolic or Systolic & Diastolic 3. Unspecified: CHF cannot be further specified regarding type or acuity 4. Other, with explanation of clinical findings 5. Clinically undetermined, no explanation for clinical findings PHYSICIAN RESPONSE Acuity: Chronic Type: Diastolic Please remember a lack of response to the above will prompt a phone page by CDI/Coding staff. In responding to this query, please exercise your independent professional judgment. The purpose of this communication is to more accurately reflect the complexity of your patients condition. The fact that a question is asked does not imply that any particular answer is desired or expected. Thank you for your timely response to this clarification. Requestors name: Vian THIS PHYSICIAN QUERY FORM IS A PERMANENT PART OF THE MEDICAL RECORD IVAN ARCHER Dec 27, 2021 12:12 CASTRO KIRBY MD Dec 29, 2021 16:39
[2021-12-29] MEDS ORDERED: warFARin 2.5 MG (COUMADIN) TAB PO SCH (18:00)
== END 2021-12-26 14:43 | disposition home or self-care (01) | DRG 309 ==
LOC: EDUNIT# 18:09 → ER 18:10 → 4TH 21:35 → ICU 12-24 14:39
PROVIDERS: ADMIT Family Medicine; ATTEND Internal Medicine
PROC: 8E0ZXY6 Isolation (ICD-10-PCS; principal; 2021-12-23)
DX: R00.1 Bradycardia, unspecified (principal); I50.32 Chronic diastolic (congestive) heart failure; I16.0 Hypertensive urgency; I48.19 Other persistent atrial fibrillation; Z79.01 Long term (current) use of anticoagulants; E11.9 Type 2 diabetes mellitus without complications; F41.9 Anxiety disorder, unspecified; F32.A Depression, unspecified; I11.0 Hypertensive heart disease with heart failure; R29.700 NIHSS score 0; G47.33 Obstructive sleep apnea (adult) (pediatric); E78.5 Hyperlipidemia, unspecified; E66.9 Obesity, unspecified; Z68.37 Body mass index [BMI] 37.0-37.9, adult; Z79.84 Long term (current) use of oral hypoglycemic drugs; Z79.52 Long term (current) use of systemic steroids; T46.0X5A Adverse effect of cardiac-stimulant glycosides and drugs of similar action, initial encounter; T44.7X5A Adverse effect of beta-adrenoreceptor antagonists, initial encounter
CPT/HCPCS: 36415; 70450; 70496; 70498; 71045; 78452; 80048; 80053; 80061; 80162; 81000; 82947; 83735; 84100; 84484; 85025; 85379; 85610; 85730; 93005; 93017; 93041; 93306; 93880; 96374

== ENCOUNTER 2022-12-01 20:57 | Observation (INO) | payer MEDICARE ==
[~2022-12-01] VITALS: Ht 175.3 cm; Wt 111.9 kg
[~2022-12-01 20:57] MED LIST changes: +CALC-140 PO; +RT-ALBUINH INH; +VITA-189 PO
--- NOTE | 2022-12-01 21:17 | ED Respiratory ---
General Chief Complaint: Respiratory Problems Stated Complaint: SOA Nursing Triage Note: TO ED VIA [facility] FROM HOME WITH C/O SOA. BREATHING TX AT HOME AND DUONEB EN ROUTE VIA EMS. 20G IV SITE TO LAC STARTED BY ES EN ROUTE. 4L O2 VIA NC ON ARRIVAL. Source: patient, EMS Exam Limitations: no limitations History of Present Illness Date Seen by Provider: Dec 01, 2022 Time Seen by Provider: 21:00 Initial Comments Patient is a 77-year-old male history of diabetes congestive heart failure A-fib on warfarin who presents to the emergency room by ambulance chief complaint shortness of breath. Patient states that he has had increasing shortness of breath over the last 2 to 3 days. It got more severe yesterday as he was feeding cows and then worse this evening. He does not wear home oxygen. He does use a CPAP at night. He has used increasing amounts of albuterol per nebulizer, 3 treatments within the last hour or 2 prior to arrival. He denies fevers or chills. He has had cough with primarily clear sputum but it is occasionally yellow. Remote smoking history quit when he was 36 years old. Is COVID vaccinated and boosted. Also recently had Pneumovax and flu shots. No sick contacts. Does not have a wood stove at home. No smoke exposure. Is a al. Had DuoNeb prior to arrival. EMS reports sats of 90 to 91% on room air when they got to him. Currently on 4 L satting 96 to 97%. A-fib slightly tachycardic at 105-107. Timing/Duration: other (2-3 days) Severity: severe Prior Episodes/Possible Cause: occasional episodes Modifying Factors: Improves With Albuterol Nebulizer; Worse With Coughing; Improves With Oxygen, Improves With Rest Associated Symptoms: chest pain/soreness, cough, shortness of breath, wheezing Allergies and Home Medications Allergies Coded Allergies: No Known Drug Allergies (Unverified , 10/22/20) Patient Home Medication List Home Medication List Reviewed: Yes Albuterol Sulfate (Albuterol Sulfate) 2.5 Mg/3 Ml Vial.neb, 3 ML NEB Q4 -6H PRN for SHORTNESS OF BREATH, (Reported) Entered as Reported by: ANA GONZALEZ on 10/22/20 1354 Albuterol Sulfate (Ventolin Hfa) 1 Puff Puff, 2 PUFF INH Q4H PRN for SHORTNESS OF BREATH, (Reported) Entered as Reported by: MELANI FORRESTER on 12/24/21 1003 Calcium Carbonate/Vitamin D3 (Calcium + Vitamin D Tablet) 1 Each Tablet, 1 EACH PO DAILY, (Reported) Entered as Reported by: MELANI FORRESTER on 12/24/21 0959 Clonazepam (Clonazepam) 0.5 Mg Tablet, 0.25 MG PO DAILY, (Reported) Entered as Reported by: ANA GONZALEZ on 10/22/20 1354 Clonazepam (Clonazepam) 0.5 Mg Tablet, 0.5 MG PO HS, (Reported) Entered as Reported by: ANAHI NAVA on 10/23/20 09 Furosemide (Furosemide) 40 Mg Tablet, 40 MG PO DAILY, (Reported) Entered as Reported by: ANA GONZALEZ on 10/22/20 135 Gabapentin (Neurontin) 300 Mg Capsule, 300 MG PO TID, (Reported) Entered as Reported by: ANAHI NAVA on 10/23/20 09 Losartan Potassium (Losartan Potassium) 50 Mg Tablet, 100 MG PO DAILY Prescribed by: NOVA MOHAN on 12/26/21 1103 Metformin HCl (Metformin HCl ER) 750 Mg Tab.er.24h, 750 MG PO BID, (Reported) Entered as Reported by: ANA GONZALEZ on 10/22/20 135 [place]-3/Dha/Epa/Fish Oil (Fish Oil 500 mg Softgel) 1 Each Capsule, 1 EACH PO DAILY, (Reported) Entered as Reported by: ANAHI NAVA on 10/23/20 09 Pantoprazole Sodium (Pantoprazole Sodium) 40 Mg Tablet.dr, 40 MG PO DAILY, (Reported) Entered as Reported by: ANA GONZALEZ on 10/22/20 1354 Potassium Chloride (Potassium Chloride) 20 Meq Tab.er.prt, 20 MEQ PO DAILY, (Reported) Entered as Reported by: ANA GONZALEZ on 10/22/20 135 Pravastatin Sodium (Pravastatin Sodium) 20 Mg Tablet, 20 MG PO HS, (Reported) Entered as Reported by: ANA GONZALEZ on 10/22/20 135 Vitamin B Complex (B Complex) 1 Each Tablet, 1 EACH PO DAILY, (Reported) Entered as Reported by: MELANI FORRESTER on 12/24/21 0959 Warfarin Sodium (Warfarin Sodium) 5 Mg Tablet, 7.5 MG PO SUN,FRI,FRI, (Reported) Entered as Reported by: ANA GONZALEZ on 10/22/20 1354 Warfarin Sodium (Warfarin Sodium) 5 Mg Tablet, 5 MG PO TU,[place],FRI, (Reported) Entered as Reported by: ANAHI NAVA on 10/23/20 09 Warfarin Sodium (Warfarin Sodium) 5 Mg Tablet, 2.5 MG PO SAT, (Reported) Entered as Reported by: ANAHI NAVA on 10/23/20925 Review of Systems Review of Systems Constitutional: see HPI EENTM: no symptoms reported Respiratory: cough, phlegm, short of breath, wheezing Cardiovascular: chest pain (with cough) Gastrointestinal: no symptoms reported Genitourinary: no symptoms reported Musculoskeletal: no symptoms reported Skin: no symptoms reported Psychiatric/Neurological: No Symptoms Reported All Other Systems Reviewed Negative Unless Noted: Yes Past Xpnsood-Ffpnpo-Ocgdzi Hx Patient Social History Smoking Status: Former Smoker Immunizations Up To Date Influenza Vaccine Up-to-Date: Yes; Up-to-Date First/Initial COVID19 Vaccinat: 2020 Second COVID19 Vaccination Romero: 2020 Third COVID19 Vaccination Date: 2020 Past Medical History Surgery/Hospitalization HX: appy,afib,DM complications Surgeries: Yes (CYSTS REMOVED) Appendectomy, Tonsillectomy Cardiac: Yes (CHF) High Cholesterol, Hypertension Neurological: No Genitourinary: No Gastrointestinal: No Musculoskeletal: No Endocrine: Yes Diabetes, Non-Insulin dep Cancer: No Psychosocial: No Integumentary: No Family Medical History Colon cancer 19 FATHER Physical Exam Vital Signs - First Documented 12/01/22 21:01 Temp 36.5 Pulse 117 Resp 24 B/P (MAP) 199/119 (145) Pulse Ox 94 O2 Delivery Nasal Cannula Capillary Refill : Less Than 3 Seconds Height: '" Weight: lbs. oz. kg; BMI Method: General Appearance: WD/WN, mild distress Eyes: Bilateral Eye Normal Inspection, Bilateral Eye PERRL, Bilateral Eye EOMI HEENT: PERRL/EOMI Neck: normal inspection Respiratory: respiratory distress (mild), accessory muscle use, wheezing, expiration Cardiovascular: no murmur, tachycardia, irregularly irregular (HR110) Gastrointestinal: normal bowel sounds, non tender, soft Extremities: normal range of motion, non-tender, normal inspection, no pedal edema Neurologic/Psychiatric: alert, normal mood/affect, oriented x 3 Skin: normal color, warm/dry Progress/Results/Core Measures Suspected Sepsis SIRS Temperature: Pulse: 117 Respiratory Rate: 24 Laboratory Tests 12/01/22 21:03: White Blood Count 11.6H Blood Pressure 199 /119 Mean: 145 Laboratory Tests 12/01/22 21:03: Creatinine 1.09, INR Comment 2.1H, Platelet Count 266 Results/Orders Lab Results Laboratory Tests Test 12/01/22 21:03 12/01/22 21:28 Range/Units White Blood Count 11.6 H 4.3-11.0 10^3/uL Red Blood Count 4.73 4.30-5.52 10^6/uL Hemoglobin 14.9 13.3-17.7 g/dL Hematocrit 43 40-54 % Mean Corpuscular Volume 92 80-99 fL Mean Corpuscular Hemoglobin 32 25-34 pg Mean Corpuscular Hemoglobin Concent 34 32-36 g/dL Red Cell Distribution Width 12.9 10.0-14.5 % Platelet Count 266 130-400 10^3/uL Mean Platelet Volume 10.2 9.0-12.2 fL Immature Granulocyte % (Auto) 0 % Neutrophils (%) (Auto) 77 H 42-75 % Lymphocytes (%) (Auto) 10 L 12-44 % Monocytes (%) (Auto) 8 0-12 % Eosinophils (%) (Auto) 4 0-10 % Basophils (%) (Auto) 1 0-10 % Neutrophils # (Auto) 8.9 H 1.8-7.8 10^3/uL Lymphocytes # (Auto) 1.1 1.0-4.0 10^3/uL Monocytes # (Auto) 1.0 0.0-1.0 10^3/uL Eosinophils # (Auto) 0.5 H 0.0-0.3 10^3/uL Basophils # (Auto) 0.1 0.0-0.1 10^3/uL Immature Granulocyte # (Auto) 0.1 0.0-0.1 10^3/uL Prothrombin Time 23.7 H 12.2-14.7 SEC INR Comment 2.1 H 0.8-1.4 Sodium Level 139 135-145 MMOL/L Potassium Level 3.5 L 3.6-5.0 MMOL/L Chloride Level 103 98-107 MMOL/L Carbon Dioxide Level 23 21-32 MMOL/L Anion Gap 13 5-14 MMOL/L Blood Urea Nitrogen 18 7-18 MG/DL Creatinine 1.09 0.60-1.30 MG/DL Estimat Glomerular Filtration Rate 70 BUN/Creatinine Ratio 17 Glucose Level 135 H 70-105 MG/DL Calcium Level 9.6 8.5-10.1 MG/DL Magnesium Level 2.1 1.6-2.4 MG/DL Blood Gas Puncture Site r rad Blood Gas Patient Temperature 36.5 Arterial Blood pH 7.42 7.37-7.43 Arterial Blood Partial Pressure CO2 42 35-45 MMHG Arterial Blood Partial Pressure O2 97 H 79-93 MMHG Arterial Blood HCO3 27 23-27 MMOL/L Arterial Blood Total CO2 28.2 21.0-31.0 MMOL/L Arterial Blood Oxygen Saturation 96 94-100 % Arterial Blood Base Excess 2.6 H -2.5-2.5 MMOL/L Jaime Test YES-POS Blood Gas Ventilator Setting NO Blood Gas Inspired Oxygen 4L My Orders Orders - SHOLA GE MD Ed Iv/Invasive Line Start (12/01/22 21:18) Cbc With Automated Diff (12/01/22 21:18) Basic Metabolic Panel (12/01/22 21:18) Magnesium (12/01/22 21:18) Ekg Tracing (12/01/22 21:18) Protime With Inr (12/01/22 21:18) Chest 1 View, Ap/Pa Only (12/01/22 21:18) Arterial Blood Gas (12/01/22 21:18) Methylprednisolone Sod Succ (Solu-Medrol (12/01/22 21:30) Medications Given in ED Current Medications Medications Dose Ordered Sig/Divya Route Start Time Stop Time Status Last Admin Dose Admin Methylprednisolone Sodium Succinate 125 mg ONCE ONCE IVP 12/01/22 21:30 12/01/22 21:31 DC 12/01/22 21:25 125 MG Vital Signs/I&O 12/01/22 21:01 Temp 36.5 Pulse 117 Resp 24 B/P (MAP) 199/119 (145) Pulse Ox 94 O2 Delivery Nasal Cannula Capillary Refill : Less Than 3 Seconds Blood Pressure Mean: 145 Progress Note : Time: 22:18 Progress Note Patient seen and evaluated by me, 77-year-old with a history of COPD, diabetes CHF and A-fib. Evaluation today includes a physical exam, EKG, CBC, chemistry, magnesium level, chest x-ray and ABG. Differential diagnosis based on history and physical exam, acute coronary syndrome, COPD exacerbation, pneumonia, acute bronchitis, pneumothorax. Physical exam remarkable for diffuse bilateral expiratory wheezes with mild respiratory distress. Appears adequately hydrated with moist mucous membranes. No lower extremity edema or rhonchi consistent with CHF exacerbation. Continuing to sat 96% on 4 L. Oxygen was titrated down to 2 L, 93 to 95%. Labs show mild leukocytosis, normal hemoglobin, slightly increased blood sugar with normal electrolytes, magnesium. Chest x-ray is unremarkable. ABG does not show any type of acidosis. EKG A-fib at 106. Findings consistent with acute exacerbation of COPD. Case is discussed with Dr. Mohan, the hospitalist on-call for the evening. Will admit observation to the medical floor RT protocol, Solu-Medrol has been given. We will dose 60 mg IV every 8. Insulin sliding scale A. I have discussed findings and plan of care with the family and the patient. They verbalized understanding are comfortable with the plan of care. All questions are sought and answered. ECG Initial ECG Impression Date: Dec 01, 2022 Initial ECG Impression Time: 21:18 Initial ECG Rate: 106 Initial ECG Rhythm: A Fib/Flutter Initial ECG Impression: Atrial Fibrillation Diagnostic Imaging Diagonstic Imaging: Xray Plain Films/CT/US/NM/MRI: chest Comments interpreted by me - no focal infiltrates or effusions Departure Communication (Admissions) Time/Spoke to Admitting Phy: 22:[address] Mohan - hospitalist Impression Primary Impression: COPD exacerbation Disposition: ADMITTED INPATIENT Condition: Stable Admissions Decision to Admit Reason: Admit from ER (General) Decision to Admit/Date: Dec 01, 2022 Time/Decision to Admit Time: 22:22 Departure-Patient Inst. Referrals: RIVAS SANDERS DO (PCP/Family) Primary Care Physician SHOLA GE MD Dec 01, 2022 21:17
[2022-12-01] MEDS ORDERED: methylPREDNISolone 125 MG (Solu-MEDROL) VIAL IVP ONE (21:30)
[2022-12-01 21:33] LABS: BASOPHILS # (AUTO) 0.1 10^3/uL (0.0-0.1); BASOPHILS % (AUTO) 1 % (0-10); EOSINOPHILS # (AUTO) 0.5 10^3/uL (0.0-0.3); EOSINOPHILS % (AUTO) 4 % (0-10); HEMATOCRIT 43 % (40-54); HEMOGLOBIN 14.9 g/dL (13.3-17.7); LYMPHOCYTES # (AUTO) 1.1 10^3/uL (1.0-4.0); LYMPHOCYTES % (AUTO) 10 % (12-44); MEAN CORPUSCULAR HEMOGLOBIN 32 pg (25-34); MEAN CORPUSCULAR HGB CONC 34 g/dL (32-36); MEAN CORPUSCULAR VOLUME 92 fL (80-99); MEAN PLATELET VOLUME 10.2 fL (9.0-12.2); MONOCYTES % (AUTO) 8 % (0-12); NEUTROPHILS # (AUTO) 8.9 10^3/uL (1.8-7.8); NEUTROPHILS % (AUTO) 77 % (42-75); PLATELET COUNT 266 10^3/uL (130-400); WHITE BLOOD COUNT 11.6 10^3/uL (4.3-11.0)
[2022-12-01 21:34] LABS: ABG BASE EXCESS 2.6 MMOL/L (-2.5-2.5); ABG OXYGEN SATURATION 96 % (94-100); ABG PCO2 42 MMHG (35-45); ABG PH 7.42 (7.37-7.43); ABG PO2 97 MMHG (79-93); ABG TCO2 28.2 MMOL/L (21.0-31.0)
[2022-12-01 21:35] LABS: ALLENS TEST YES-POS; INSPIRED O2 4L; PATIENT TEMP 36.5; VENTILATOR NO
[2022-12-01 21:38] LABS: INR 2.1 (0.8-1.4); PROTHROMBIN TIME PATIENT 23.7 SEC (12.2-14.7)
[2022-12-01 21:44] LABS: CALCIUM 9.6 MG/DL (8.5-10.1); CREATININE SERUM 1.09 MG/DL (0.60-1.30); MAGNESIUM 2.1 MG/DL (1.6-2.4); POTASSIUM 3.5 MMOL/L (3.6-5.0)
--- NOTE | 2022-12-01 22:54 | Diagnostic Imaging Report ---
CLINICAL INDICATION: Patient with shortness of breath and wheezing and CHF x 3 days. EXAM: Portable chest x-ray upright view. COMPARISON: Chest x-ray dated 12/23/2021. FINDINGS: Lungs/pleura: There is increased lung markings in both lung bases which may be related to atelectasis. There is no definite lung infiltrate. Are clear. There is no pneumothorax. There is no pleural effusion. Mediastinum: Unremarkable. Pulmonary vasculature: There is no significant pulmonary vascular congestion. Heart: There is cardiomegaly. Bones/extrathoracic soft tissue: There are degenerative spurs involving the thoracic spine. IMPRESSION: 1: There is bibasilar atelectasis with no definite lung infiltrate. 2: There is cardiomegaly with no significant pulmonary vascular congestion. Dictated by: Dictated on workstation # [id number]
[2022-12-01 23:34] VITALS: BP 199/114
[2022-12-01 23:35] VITALS: BP 147/93
[2022-12-01] MEDS ORDERED: CATHETER FLUSH 10 ML SYR IVP PRN (23:45)
[2022-12-01] MEDS ORDERED: RT-ALBUTEROL SULF 2.5 MG/3 ML PRE-MIX VIAL INH PRN (23:45)
[2022-12-02] VITALS (7 sets, daily range): BP systolic 145–175; BP diastolic 70–97
[2022-12-02] MEDS: RT-ALBUTEROL SULF 2.5 MG/3 ML PRE-MIX VIAL INH SCH ×6 (00:06→22:03)
[2022-12-02] MEDS ORDERED: inSUlin (REGULAR) HUMAN 1 UNIT/0.01 ML (CHARGE PER UNIT) SC SCH (06:00)
[2022-12-02] MEDS: CATHETER FLUSH 10 ML SYR IVP SCH ×3 (06:05→23:29)
[2022-12-02] MEDS: methylPREDNISolone 125 MG (Solu-MEDROL) VIAL IV SCH ×2 (06:06→14:17)
[2022-12-02] MEDS: FUROSEMIDE 40 MG (LASIX) TAB PO SCH (06:06)
[2022-12-02] MEDS: KCL 20 MEQ TAB (K-DUR) PO SCH (06:06)
[2022-12-02] MEDS: PANTOPRAZOLE 40 MG (PROTONIX) TAB PO SCH (08:00)
[2022-12-02] MEDS: LOSARTAN 50 MG (COZAAR) TAB PO SCH (08:00)
--- NOTE | 2022-12-02 11:18 | History & Physical ---
MARLONLEIA 12/02/22 1118: History of Present Illness History of Present Illness Reason for visit/HPI Patient is a 77-year-old male with a history of COPD, paroxysmal a-fib, CHF, and non-insulin dependent DM who presented to the ED on 12/01 with chief complaint of increasing shortness of breath. 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 He used his albuterol nebulizer 3 times in the span of an hour and half which he reports helped slightly. When EMS arrived they found his O2 sats to be 90-91% on room air. After receiving a duoneb treatment and being placed on 4L of O2, his saturation improved to 96-97%. He reports that his symptoms have improved greatly since admission and that he has not been experiencing any more shortness of breath. The patient does not use oxygen at home, but uses a CPAP machine nightly. The patient notes that he still has a productive cough with yellow sputum, which he states started yesterday. Wheezing is heard b/l on exhalation, but the patient reports that this has improved noticeably since yesterday. Patient has no other complaints. Date of Admission Dec 01, 2022 at 23:04 Date Seen by a Provider: Dec 02, 2022 Time Seen by a Provider: 10:30 I consulted on this patient on 12/02/22 11:07 Attending Physician Deion Feliciano DO Admitting Physician Admitting Physician: Josephine Rodríguez MD Attending Physician: Josephine Rodríguez MD Consult Allergies and Home Medications Allergies Coded Allergies: No Known Drug Allergies (Unverified , 10/22/20) Patient Home Medication List Home Medication List Reviewed: Yes Albuterol Sulfate (Albuterol Sulfate) 2.5 Mg/3 Ml Vial.neb, 3 ML NEB Q4 -6H PRN for SHORTNESS OF BREATH, (Reported) Entered as Reported by: ANA GONZALEZ on 10/22/20 1354 Last Action: Reviewed Calcium Carbonate (Calcium) 600 Mg Calcium (1500 Mg) Tablet, 600 MG PO DAILY, (Reported) Entered as Reported by: ISRA RIVERA on 12/02/22 1250 Last Action: Reviewed Duloxetine HCl (Duloxetine HCl) 60 Mg Capsule.dr, 60 MG PO DAILY, (Reported) Entered as Reported by: ISRA RIVERA on 12/02/22 125 Last Action: Reviewed Furosemide (Furosemide) 40 Mg Tablet, 40 MG PO DAILY, (Reported) Entered as Reported by: ANA GONZALEZ on 10/22/201353 Last Action: Reviewed Gabapentin (Gabapentin) 600 Mg Tablet, 600 MG PO TID, (Reported) Entered as Reported by: ISRA RIVERA on 12/02/22 1248 Last Action: Reviewed Losartan Potassium (Losartan Potassium) 100 Mg Tablet, 100 MG PO DAILY, (Reported) Entered as Reported by: ISRA RIVERA on 12/02/22 125 Last Action: Reviewed Melatonin (Melatonin) 5 Mg Tab.rapdis, 5 MG PO HS PRN for SLEEP, (Reported) Entered as Reported by: ISRA RIVERA on 12/02/22 125 Last Action: Reviewed Metformin HCl (Metformin HCl ER) 750 Mg Tab.er.24h, 750 MG PO BID, (Reported) Entered as Reported by: ANA GONZALEZ on 10/22/201353 Last Action: Reviewed [place]-3 Fatty Acids ([place]-3) 1,000 Mg Capsule, 1,000 MG PO DAILY, (Reported) Entered as Reported by: ISRA RIVERA on 12/02/22 125 Last Action: Reviewed Pantoprazole Sodium (Pantoprazole Sodium) 40 Mg Tablet.dr, 40 MG PO DAILY, (Reported) Entered as Reported by: ANA GONZALEZ on 10/22/201353 Last Action: Reviewed Potassium Chloride (Potassium Chloride) 20 Meq Tab.er.prt, 20 MEQ PO DAILY, (Reported) Entered as Reported by: ANA GONZALEZ on 10/22/201353 Last Action: Reviewed Pravastatin Sodium (Pravastatin Sodium) 20 Mg Tablet, 20 MG PO HS, (Reported) Entered as Reported by: ANA GONZALEZ on 10/22/201353 Last Action: Reviewed Vitamin B Complex (B Complex) 1 Each Tablet, 1 EACH PO DAILY, (Reported) Entered as Reported by: MELANI FORRESTER on 12/24/21 9983 Last Action: Reviewed Warfarin Sodium (Warfarin Sodium) 5 Mg Tablet, 7.5 MG PO SUN,MON,WED,SAT, (Reported) Entered as Reported by: ANA GONZALEZ on 10/22/201353 Last Action: Reviewed Warfarin Sodium (Warfarin Sodium) 5 Mg Tablet, 5 MG PO TUES,TAWANA,FRI, (Reported) Entered as Reported by: ANAHI NAVA on 10/23/20925 Last Action: Reviewed Discontinued Medications Gabapentin (Neurontin) 300 Mg Capsule, 300 MG PO TID, (Reported) Discontinued Reason: Prescription changed Entered as Reported by: ANAHI NAVA on 10/23/20925 Losartan Potassium (Losartan Potassium) 50 Mg Tablet, 50 MG PO DAILY, (Reported) Discontinued Reason: Prescription changed Entered as Reported by: ISRA RIVERA on 12/02/22 1250 Last Action: New Order Past Piqtqlt-Ujpofr-Wmhnlw Hx Patient Social History Smoking Status: Former Smoker Use of E-Cig and/or Vaping dev: No Substance use?: No Alcohol Use?: No Pt feels they are or have been: No Immunizations Up To Date Date of Influenza Vaccine: Jul 13, 2022 First/Initial COVID19 Vaccinat: 2020 Second COVID19 Vaccination Romero: 2020 Tetanus Booster (TDap): Unknown Date of Pneumonia Vaccine: Oct 22, 1996 Current Status Advance Directives: No Communicates: Verbally Primary Language: Togolese Preferred Spoken Language: Togolese Is interpretation needed?: No Sensory deficits: Vision impairment, Hearing impairment Implanted or Applied Medical D: None Past Medical History Surgeries: Appendectomy, Tonsillectomy High Cholesterol, Hypertension Diabetes, Non-Insulin dep Family Medical History Colon cancer 19 FATHER Review of Systems Constitutional: No chills, No fever EENTM: No hearing loss, No blurred vision, No double vision Respiratory: cough (Producing yellow sputum), short of breath (improving), wheezing (improving) Cardiovascular: No chest pain, No palpitations Gastrointestinal: No abdominal pain, No nausea, No vomiting Genitourinary: No dysuria, No hematuria Musculoskeletal: No back pain, No neck pain Skin: No change in color, No change in hair/nails Psychiatric/Neurological: Anxiety Physical Exam Vital Signs Vital Signs - First Documented 12/01/22 12/01/22 21:01 22:57 Temp 36.5 Pulse 117 Resp 24 B/P (MAP) 199/119 (145) Pulse Ox 94 O2 Delivery Nasal Cannula O2 Flow Rate 4.00 Capillary Refill : Less Than 3 Seconds Height, Weight, BMI Height: '" Weight: lbs. oz. kg; 36.54 BMI Method: General Appearance: No Apparent Distress, WD/WN HEENT: PERRL/EOMI, Pharynx Normal Neck: Non Tender, Supple Respiratory: Chest Non Tender, No Respiratory Distress, Wheezing (b/l on exhalation) Cardiovascular: Regular Rate, Rhythm, No Edema, Normal Peripheral Pulses Gastrointestinal: Non Tender, Soft Rectal: Deferred Back: No Vertebral Tenderness Extremity: Non Tender, No Calf Tenderness, No Pedal Edema Neurologic/Psychiatric: Alert, Oriented x3 Skin: Normal Color, Warm/Dry Lymphatic: No Adenopathy Assessment/Plan Assessment and Plan COPD exacerbation Continue albuterol 2.5 mg INH Q4H with additional 2.5mg INH Q2H PRN Currently on methylprednisolone 60mg IV Q8H, consider switching to prednisone 40mg PO daily Down from 4L of O2 to 1L, maintaining O2 sats in mid 90s, will try going on room air today Compensated systolic heart failure Continue lasix 40mg PO daily Continue losartan 50mg PO daily Last echo 12/24/21: EF of 55-60% Paroxysmal afib Rate has been well-controlled during stay Continue home warfarin dose: 7.5 mg PO Sun., Mon., Wed.; 5.0mg PO Tue., Thur., Fri.; and 2.5mg PO Sat INR currently 2.1 [id number]-[id number] T2DM last glucose measured at 193 start on SSI HLD Start home dose of pravastatin 20mg PO daily ARMANDO Patient brought CPAP machine from home Admission Diagnosis Admission Status: Observation REDDY ZAPATA MD 12/02/22 1350: Allergies and Home Medications Allergies Coded Allergies: No Known Drug Allergies (Unverified , 10/22/20) Patient Home Medication List Albuterol Sulfate (Albuterol Sulfate) 2.5 Mg/3 Ml Vial.neb, 3 ML NEB Q4 -6H PRN for SHORTNESS OF BREATH, (Reported) Entered as Reported by: ANA OGNZALEZ on 10/22/20 1354 Last Action: Reviewed Calcium Carbonate (Calcium) 600 Mg Calcium (1500 Mg) Tablet, 600 MG PO DAILY, (Reported) Entered as Reported by: ISRA RIVERA on 12/02/22 1250 Last Action: Reviewed Duloxetine HCl (Duloxetine HCl) 60 Mg Capsule.dr, 60 MG PO DAILY, (Reported) Entered as Reported by: ISRA RIVERA on 12/02/22 1250 Last Action: Reviewed Furosemide (Furosemide) 40 Mg Tablet, 40 MG PO DAILY, (Reported) Entered as Reported by: ANA GONZALEZ on 10/22/20 135 Last Action: Reviewed Gabapentin (Gabapentin) 600 Mg Tablet, 600 MG PO TID, (Reported) Entered as Reported by: ISRA RIVERA on 12/02/22 1248 Last Action: Reviewed Losartan Potassium (Losartan Potassium) 100 Mg Tablet, 100 MG PO DAILY, (Reported) Entered as Reported by: ISRA RIVERA on 12/02/22 1252 Last Action: Reviewed Melatonin (Melatonin) 5 Mg Tab.rapdis, 5 MG PO HS PRN for SLEEP, (Reported) Entered as Reported by: ISRA RIVERA on 12/02/22 125 Last Action: Reviewed Metformin HCl (Metformin HCl ER) 750 Mg Tab.er.24h, 750 MG PO BID, (Reported) Entered as Reported by: ANA GONZALEZ on 10/22/201353 Last Action: Reviewed [place]-3 Fatty Acids ([place]-3) 1,000 Mg Capsule, 1,000 MG PO DAILY, (Reported) Entered as Reported by: ISRA RIVERA on 12/02/22 125 Last Action: Reviewed Pantoprazole Sodium (Pantoprazole Sodium) 40 Mg Tablet.dr, 40 MG PO DAILY, (Reported) Entered as Reported by: ANA GONZALEZ on 10/22/201353 Last Action: Reviewed Potassium Chloride (Potassium Chloride) 20 Meq Tab.er.prt, 20 MEQ PO DAILY, (Reported) Entered as Reported by: ANA GONZALEZ on 10/22/20 135 Last Action: Reviewed Pravastatin Sodium (Pravastatin Sodium) 20 Mg Tablet, 20 MG PO HS, (Reported) Entered as Reported by: ANA GONZALEZ on 10/22/201353 Last Action: Reviewed Vitamin B Complex (B Complex) 1 Each Tablet, 1 EACH PO DAILY, (Reported) Entered as Reported by: MELANI FORRESTER on 12/24/21 5781 Last Action: Reviewed Warfarin Sodium (Warfarin Sodium) 5 Mg Tablet, 7.5 MG PO SUN,MON,WED,SAT, (Reported) Entered as Reported by: ANA GONZALEZ on 10/22/201353 Last Action: Reviewed Warfarin Sodium (Warfarin Sodium) 5 Mg Tablet, 5 MG PO TUES,TAWANA,FRI, (Reported) Entered as Reported by: ANAHI BRANDY on 10/23/20925 Last Action: Reviewed Discontinued Medications Gabapentin (Neurontin) 300 Mg Capsule, 300 MG PO TID, (Reported) Discontinued Reason: Prescription changed Entered as Reported by: ANAHI DUBONZANT on 10/23/20925 Losartan Potassium (Losartan Potassium) 50 Mg Tablet, 50 MG PO DAILY, (Reported) Discontinued Reason: Prescription changed Entered as Reported by: ISRA RIVERA on 12/02/22 1250 Last Action: New Order Past Pltmoeq-Wuveon-Fhnuuw Hx Family Medical History Colon cancer 19 FATHER Assessment/Plan Assessment and Plan Patient is admitted to the hospital secondary to acute hypoxic respiratory failure due to COPD exacerbation. He normally does not wear oxygen and is requiring 2 L of oxygen at the moment. He has had worsening symptoms for 2 or 3 days and tried using his rescue inhaler and nebulizer at home without improvement. He states that this happens every year around this time and he ends up in the hospital not infrequently because of it. He reports feeling better today and breathing much easier though he is still wheezing. He is currently on 1 L of oxygen. He remains on steroids and MAT protocol. He is very hopeful to be able to discharge home but we discussed discharge criteria. We will wean him off oxygen at this time and see how he does throughout the day and afternoon. If he is doing very well we could consider discharge home today with close outpatient follow-up though I did tell him that would be an ambitious plan Supervisory-Addendum Brief Verification & Attestation Participated in pt care: history, MDM, physical Personally performed: exam, history, MDM, supervision of care Care discussed with: Medical Student Procedures: n/a Results interpretation: Verified all documentation Verification and Attestation of Medical Student E/M Service A medical student performed and documented this service in my presence. I reviewed and verified all information documented by the medical student and made modifications to such information, when appropriate. I personally performed the physical exam and medical decision making. Reddy Zapata, Dec 02, 2022,13:48 LEIA MASON Dec 02, 2022 11:18 REDDY ZAPATA MD Dec 02, 2022 13:50
[2022-12-02] MEDS: ACETAMINOPHEN 500 MG TAB (TYLENOL) PO PRN (12:21)
[2022-12-02] MEDS: guaiFENesin/DM (ROBITUSSIN DM) 10 ML UDC PO PRN ×2 (12:21→20:49)
[2022-12-02] MEDS: inSUlin ASPART (NovoLOG) 1 UNIT/0.01 ML (CHARGE PER UNIT) SC SCH ×3 (12:22→20:49)
[2022-12-02] MEDS ORDERED: GBPN600T PO (12:48)
[2022-12-02] MEDS ORDERED: LOSA50TA63 PO (12:50)
[2022-12-02] MEDS ORDERED: MELA5TAB19 PO (12:50)
[2022-12-02] MEDS ORDERED: CALC600T91 PO (12:50)
[2022-12-02] MEDS ORDERED: DULO60CA59 PO (12:50)
[2022-12-02] MEDS ORDERED: OMEG10005 PO (12:51)
[2022-12-02] MEDS ORDERED: LOSA100T57 PO (12:52)
[2022-12-02] MEDS ORDERED: warFARin 7.5 MG (COUMADIN) TAB PO SCH (18:00)
[2022-12-02] MEDS ORDERED: AtorvaSTATin TABLET 10 MG TABLET PO SCH (22:30)
[2022-12-02] MEDS ORDERED: MELATONIN 3 MG TABLET PO PRN (22:45)
[2022-12-03] MEDS: RT-ALBUTEROL SULF 2.5 MG/3 ML PRE-MIX VIAL INH SCH ×4 (02:49→14:45)
[2022-12-03] MEDS: guaiFENesin/DM (ROBITUSSIN DM) 10 ML UDC PO PRN ×2 (02:54→10:57)
[2022-12-03] MEDS: ACETAMINOPHEN 500 MG TAB (TYLENOL) PO PRN (02:54)
[2022-12-03 04:02] VITALS: BP 179/102
[2022-12-03] MEDS: inSUlin ASPART (NovoLOG) 1 UNIT/0.01 ML (CHARGE PER UNIT) SC SCH ×2 (05:39→11:33)
[2022-12-03] MEDS: CATHETER FLUSH 10 ML SYR IVP SCH ×2 (06:46→13:15)
[2022-12-03] MEDS: KCL 20 MEQ TAB (K-DUR) PO SCH (06:50)
[2022-12-03] MEDS: FUROSEMIDE 40 MG (LASIX) TAB PO SCH (06:50)
[2022-12-03] MEDS ORDERED: predniSONE 20 MG TAB PO SCH (07:00)
[2022-12-03 07:19] LABS: BASOPHILS % (AUTO) 0 % (0-10); EOSINOPHILS # (AUTO) 0.1 10^3/uL (0.0-0.3); EOSINOPHILS % (AUTO) 0 % (0-10); HEMATOCRIT 46 % (40-54); HEMOGLOBIN 15.8 g/dL (13.3-17.7); LYMPHOCYTES # (AUTO) 1.7 10^3/uL (1.0-4.0); LYMPHOCYTES % (AUTO) 9 % (12-44); MEAN CORPUSCULAR HEMOGLOBIN 32 pg (25-34); MEAN CORPUSCULAR HGB CONC 35 g/dL (32-36); MEAN CORPUSCULAR VOLUME 92 fL (80-99); MONOCYTES # (AUTO) 1.8 10^3/uL (0.0-1.0); MONOCYTES % (AUTO) 10 % (0-12); NEUTROPHILS # (AUTO) 14.6 10^3/uL (1.8-7.8); NEUTROPHILS % (AUTO) 80 % (42-75); PLATELET COUNT 284 10^3/uL (130-400); WHITE BLOOD COUNT 18.1 10^3/uL (4.3-11.0)
[2022-12-03 07:27] VITALS: BP 192/90
[2022-12-03 07:35] LABS: BAND NEUTROPHILS 1 %; LYMPHOCYTES % (MANUAL) 11 %; MONOCYTES % (MANUAL) 10 %; NEUTROPHILS % (MANUAL) 78 %; PLATELET ESTIMATE ADEQUATE; RBC MORPH NORMAL
[2022-12-03] MEDS: PANTOPRAZOLE 40 MG (PROTONIX) TAB PO SCH (07:35)
[2022-12-03] MEDS: LOSARTAN 50 MG (COZAAR) TAB PO SCH (07:35)
[2022-12-03] MEDS: GABAPENTIN 600 MG (NEURONTIN) TAB PO SCH ×2 (07:35→12:19)
[2022-12-03 07:36] LABS: ALBUMIN 4.2 GM/DL (3.2-4.5); BILIRUBIN,TOTAL 0.4 MG/DL (0.1-1.0); CALCIUM 9.8 MG/DL (8.5-10.1); CREATININE SERUM 1.08 MG/DL (0.60-1.30); TOTAL PROTEIN 7.1 GM/DL (6.4-8.2)
[2022-12-03] MEDS ORDERED: FUROSEMIDE 40 MG (LASIX) TAB PO SCH (09:00)
[2022-12-03] MEDS ORDERED: DULoxetine 30 MG (CYMBALTA) CAP PO SCH (09:00)
--- NOTE | 2022-12-03 10:26 | Discharge Inst-Simple/Standard ---
Discharge Inst-Standard Discharge Medications New, Converted or Re-Newed RX: Transmitted to Pharmacy Patient Instructions/Follow Up Plan of Care/Instructions/FU: Please continue to take your medications as written. Please follow up with your primary care doctor to follow up this hospital stay. Activity as Tolerated: Yes Discharge Diet: Low Sodium Diet, ADA Diet Return to The Hospital For: Chest pain, shortness of breath, fever, weakness, if you feel you are getting worse. REDDY EDWARDS MD Dec 03, 2022 10:26 am
[2022-12-03] MEDS ORDERED: PRD20T PO (10:27)
[2022-12-03 11:25] VITALS: BP 147/79
--- NOTE | 2022-12-03 14:32 | Discharge Summary ---
LEIA MASON 12/03/22 1422: Discharge Summary Hospital Course Hospital Course Date of Admission: Dec 01, 2022 at 23:04 Admission Diagnosis : Family Physician/Provider: Deion Feliciano DO Date of Discharge: 12/03/22 Discharge Diagnosis: [ ] Hospital Course: Patient is a 77-year-old male with a history of COPD, paroxysmal a-fib, CHF, and non-insulin dependent DM who presented to the ED on 12/01 with chief complaint of increasing shortness of breath. 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 He used his albuterol nebulizer 3 times in the span of an hour and half which he reports helped slightly. When EMS arrived they found his O2 sats to be 90-91% on room air. After EMS gave the patient a duoneb treatment and placed him on 4L of O2, his saturation improved to 96-97%. During his stay, he was able to be weaned down and taken off of oxygen, which the patient does not use at home. The patient had significant b/l wheezing on exhalation which also improved during his stay. Today the patient reports that he is feeling much better and is being prepared for discharge this afternoon with a 3 day course of prednisone 40mg PO. Labs and Pending Lab Test: Laboratory Tests 12/02/22 15:27: Glucometer 156H 12/02/22 20:28: Glucometer 224H 12/03/22 05:24: Glucometer 142H 12/03/22 07:05: White Blood Count 18.1H, Red Blood Count 5.00, Hemoglobin 15.8, Hematocrit 46, Mean Corpuscular Volume 92, Mean Corpuscular Hemoglobin 32, Mean Corpuscular Hemoglobin Concent 35, Red Cell Distribution Width 13.4, Platelet Count 284, Mean Platelet Volume 10.0, Immature Granulocyte % (Auto) 0, Neutrophils (%) (Auto) 80H, Lymphocytes (%) (Auto) 9L, Monocytes (%) (Auto) 10, Eosinophils (%) (Auto) 0, Basophils (%) (Auto) 0, Neutrophils # (Auto) 14.6H, Lymphocytes # (Auto) 1.7, Monocytes # (Auto) 1.8H, Eosinophils # (Auto) 0.1, Basophils # (Auto) 0.0, Immature Granulocyte # (Auto) 0.1, Neutrophils % (Manual) 78, Lymphocytes % (Manual) 11, Monocytes % (Manual) 10, Band Neutrophils 1, Platelet Estimate ADEQUATE, Blood Morphology Comment NORMAL, Sodium Level 139, Potassium Level 4.0, Chloride Level 102, Carbon Dioxide Level 25, Anion Gap 12, Blood Urea Nitrogen 22H, Creatinine 1.08, Estimat Glomerular Filtration Rate 71, BUN/Creatinine Ratio 20, Glucose Level 138H, Calcium Level 9.8, Corrected Calcium 9.6, Total Bilirubin 0.4, Aspartate Amino Transf (AST/SGOT) 28, Alanine Aminotransferase (ALT/SGPT) 32, Alkaline Phosphatase 52, Total Protein 7.1, Albumin 4.2 12/03/22 11:29: Glucometer 142H Home Meds Active Prednisone 20 Mg Tab 40 Mg PO DAILY@0700 Reported Losartan Potassium 100 Mg Tablet 100 Mg PO DAILY [place]-3 ([place]-3 Fatty Acids) 1,000 Mg Capsule 1,000 Mg PO DAILY Calcium (Calcium Carbonate) 600 Mg Calcium (1500 Mg) Tablet 600 Mg PO DAILY Melatonin 5 Mg Tab.rapdis 5 Mg PO HS PRN Duloxetine HCl 60 Mg Capsule.dr 60 Mg PO DAILY Gabapentin 600 Mg Tablet 600 Mg PO TID B Complex (Vitamin B Complex) 1 Each Tablet 1 Each PO DAILY Warfarin Sodium 5 Mg Tablet 5 Mg PO ,FRI,FRI Pravastatin Sodium 20 Mg Tablet 20 Mg PO HS Warfarin Sodium 5 Mg Tablet 7.5 Mg PO SUN,MON,FRI,SAT TAKES 1 AND 1/2 OF (5MG) TAB Potassium Chloride 20 Meq Tab.er.prt 20 Meq PO DAILY Metformin HCl ER (Metformin HCl) 750 Mg Tab.er.24h 750 Mg PO BID Furosemide 40 Mg Tablet 40 Mg PO DAILY Albuterol Sulfate 2.5 Mg/3 Ml Vial.neb 3 Ml NEB Q4 -6H PRN Pantoprazole Sodium 40 Mg Tablet.dr 40 Mg PO DAILY Assessment/Pt Instructions COPD exacerbation Has maintained O2 sats in 90s on room air Albuterol 2.5mg INH Q4H PRN Continue prednisone 40mg PO daily, last dose will be 12/06 Compensated systolic heart failure Continue lasix 40mg PO daily Continue losartan 50mg PO daily Last echo 12/24/21: EF of 55-60% Paroxysmal afib Rate has been well-controlled during stay Continue home warfarin dose: 7.5 mg PO Sun., Mon., Wed.; 5.0mg PO e., ., Fri.; and 2.5mg PO Sat INR measured yesterday at 2.1 Wiq-ltcphbq-ovzhtujfm T2DM PT was on SSI during stay Resume metformin 750mg PO BID Patient advised blood sugar will be elevated while taking prednisone HLD Continue pravastatin 20mg PO daily ARMANDO Patient instructed to continue using CPAP machine Patient instructed to follow up with their PCP outpatient in the next 1-2 weeks. Discharge Instructions Discharge Diet: Low Sodium Diet, ADA Diet Activity as Tolerated: Yes Discharge Physical Examination Vital Signs Vital Signs Date Time Temp Pulse Resp B/P (MAP) Pulse Ox O2 Delivery O2 Flow Rate FiO2 12/03/22 12:32 109 12/03/22 11:25 36.3 18 147/79 (101) 91 Room Air 12/03/22 02:50 2.00 General Appearance: No Apparent Distress, WD/WN HEENT: PERRL/EOMI, Pharynx Normal Respiratory: Chest Non Tender, No Accessory Muscle Use, No Respiratory Distress Cardiovascular: Regular Rate, Rhythm, No Edema, No Murmur, Normal Peripheral Pulses Gastrointestinal: Non Tender, Soft Extremity: Non Tender, No Calf Tenderness, No Pedal Edema Skin: Normal Color, Warm/Dry Neurologic/Psychiatric: Alert, Oriented x3 Allergies: Coded Allergies: No Known Drug Allergies (Unverified , 10/22/20) Discharge Summary Date of Admission Dec 01, 2022 at 23:04 Date of Discharge Discharge Date: Dec 03, 2022 REDDY ZAPATA MD 12/04/22 0852: Discharge Summary Hospital Course Discharge Planning: >30 minutes discharge planning Discharge Physical Examination Allergies: Coded Allergies: No Known Drug Allergies (Unverified , 10/22/20) Supervisory-Addendum Brief Verification & Attestation Participated in pt care: history, MDM, physical Personally performed: exam, history, MDM, supervision of care Care discussed with: Medical Student Procedures: n/a Results interpretation: Verified all documentation Verification and Attestation of Medical Student E/M Service A medical student performed and documented this service in my presence. I reviewed and verified all information documented by the medical student and made modifications to such information, when appropriate. I personally performed the physical exam and medical decision making. Reddy Zapata, Dec 04, 2022,08:52 LEIA MASON Dec 03, 2022 14:22 REDDY ZAPATA MD Dec 04, 2022 08:52
[2022-12-03 15:10] VITALS: BP 147/79
[2022-12-03] MEDS ORDERED: warFARin 5 MG (COUMADIN) TAB PO SCH (18:00)
[2022-12-07] MEDS ORDERED: warFARin 2.5 MG (COUMADIN) TAB PO SCH (18:00)
== END 2022-12-03 15:10 | disposition home or self-care (01) ==
LOC: EDUNIT# 20:57 → ER 20:57 → UNDOADMOB 23:04 → 4TH 23:04 → UNDODISOB 12-03 15:10
PROVIDERS: ADMIT Internal Medicine; ATTEND Internal Medicine
DX: J44.1 Chronic obstructive pulmonary disease with (acute) exacerbation (principal); I50.22 Chronic systolic (congestive) heart failure; I48.0 Paroxysmal atrial fibrillation; E11.9 Type 2 diabetes mellitus without complications; E78.5 Hyperlipidemia, unspecified; G47.33 Obstructive sleep apnea (adult) (pediatric); Z99.89 Dependence on other enabling machines and devices; Z79.84 Long term (current) use of oral hypoglycemic drugs; Z79.899 Other long term (current) drug therapy; Z79.01 Long term (current) use of anticoagulants; Z79.51 Long term (current) use of inhaled steroids
CPT/HCPCS: 36415; 71045; 80048; 80053; 82805; 82947; 83735; 85007; 85025; 85027; 85610; 93005; 94640; 94760; 96376; G0378